=== PATIENT | male | born 1940 | race Caucasian/White ===

== ENCOUNTER 2018-05-05 16:49 | Outpatient (REF) | payer OTHER, SELFPAY ==
[2018-05-05 20:45] LABS: Uric Acid 6.3 mg/dL (3.5-7.2)
== END 2018-05-05 17:09 ==
LOC: NCHCN 16:49
PROVIDERS: PCP Specialist/Technologist Athletic Trainer; Visit Provider Specialist/Technologist Athletic Trainer
DX: M79.676 Pain in unspecified toe(s) (principal)
CPT/HCPCS: 84550

== ENCOUNTER 2018-05-13 10:06 | Emergency (ER) | payer OTHER, SELFPAY ==
[2018-05-13 10:12] VITALS: BP 158/56; PULSE 60; RESP 16; TEMP 36.4; O2SAT 99
--- NOTE | 2018-05-13 10:37 | DI.RAD_ITS ---
SYMPTOMS/DIAGNOSIS: RT KNEE PAIN RIGHT KNEE: No trauma history is provided. There are small calcifications on the tunnel projection. The joint spaces are well maintained. There is no evidence of a fracture or dislocation. SUMMARY: Minimal degenerative changes are demonstrated, nil else.
--- NOTE | 2018-05-13 10:40 | ED.GENADUL_ITS ---
Discharge Plan Disposition Patient Disposition: HOME Condition: Good Discharge Details Chief Complaint: Orthopedic Clinical Impression: Bursitis, prepatellar, right Primary Care Provider: Shaq Ware ED Provider: Justyna Banegas Home Meds and New Rx's Prescriptions: New tramadol 50 mg tablet 50 mg PO .qhs PRN (Reason: pain) Qty: 4 RF: 0 Continued atorvastatin 40 mg Tablet 40 mg PO DAILY RF: 0 bupropion HCl [Wellbutrin SR] 150 mg Tablet Sustained-Release 12 Hr 150 mg PO BID RF: 0 warfarin [Coumadin] 2.5 mg Tablet 2.5 mg PO .6DAYS A WEEK RF: 0 metoprolol tartrate 50 mg Tablet 25 mg PO BID RF: 0 ranitidine HCl 150 mg Capsule 150 mg PO BID RF: 0 Discharge Instructions Instructions: Knee Bursitis (ED) Additional Instructions: Encourage rest, ice, elevation. Tylenol as needed for discomfort. Brace to help when ambulating with discomfort. If you develop fever/chills, increased pain, redness, warmth or other new/worsening symptoms please seek care urgently once again. Otherwise, please follow-up with primary care next week for reevaluation and discuss your knee pain further Referrals: Shaq Ware [Primary Care Provider] - Medical Decision Making Patient is 77-year-old male, [facility] with chief complaint of right knee pain in the setting of elevated white count. Patient has history of mitral valve replacement, hyperlipidemia, GERD, hypertension. 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 Reports the pain began insidiously approximately 3-4 weeks ago. Patient works as a industrial plant custodian and states that he walks for 10-15 miles at night and is very physically strenuous job. However, he denies any known trauma. Was seen by his primary care was primarily concern for osteoarthritic source. He reports that x-rays were obtained which showed minimal osteoarthritis. Unable to see the images at this time. He reports that despite having a steroid injection, his pain has persisted. Indicates the prepatellar area is area of maximal discomfort. Reports that the pain can wax and wane. Reports a first awakening this morning the pain was a 9 out of 10 and is currently down to a 5. Patient ambulated in the department with no signs of antalgic gait. He denies any fevers or chills. Denies any chest pain, palpitations or shortness of breath Reviewed laboratory evaluation was completed yesterday. White count was notable to be elevated at 14. Patient is also endorsing recent change in urinary habits of the past 4-5 days. Reports he has had increased frequency of urination which is thought to be associated with his enlarged prostate. He denies any dysuria On exam, patient is noted to have some swelling over the prepatellar area, consistent with prepatellar bursitis. Did not see any indication of infection. There is no effusion, erythema or warmth. Exam is otherwise normal without any pain elicited on exam. We will repeat laboratory evaluation, obtain imaging and consult with orthopedics. At this point, I do not feel that aspiration is appropriate as this may increase his risk of infection which he feels I do not have suspicion for infection being present in the knee at this time. Also obtain a urinalysis as I am questioning that this may be the source of his leukocytosis given his recent onset of symptoms. Labs significant for WBC of 12.4, this is down trending from yesterday. No evidence of UTI. Labs otherwise without significant abnormality. Discussed findigns with the patient. Consulted with Dr. Hernandez as the PCP had been concerned about septic joint and were questioning the need for aspiration. At this point, on clinical exam, I do not see source to aspirate. He advised against aspiration, advised that if patient is ambulatory on the knee with full ROM and no effusion this does not coorelate clinically with infection. Contacted Ainsley Saldivar NP, regarding todays findings. She reports that she did not evaluate the knee yesterday, advised patient was there for his yearly check up. Was concerned with knee pain and leukocytosis that the two may be linked. ADvised he follow up with his non[facility] PCP. Patient I have reviewed findings. I encouraged rest, ice and elevation. Advised Tylenol as needed for discomfort. We will fit him in a hinged knee brace to help with discomfort with ambulation. Advise follow-up with his primary care in 1 week for reevaluation. We discussed new/worsening symptoms, in particular signs and symptoms of infection, and when to seek care urgently once again. All of his questions and concerns were addressed and he is in agreement this plan At the time of discharge, patient is requesting stronger pain medication. He has been on Tylenol 3 from his primary care which she reports is not sufficient in alleviating his discomfort. My concern, with change in the patient's pain medication to a narcotic, is his age and that he continues to drive. I advised that we could do a nightly dose of tramadol that he should not drive while on this medication. We discussed the risks associated with it, patient did sign a narcotic agreement. HPI General Mode of arrival: ambulatory . Date/Time Provider Initiated Documentation: 05/13/18 10:06 . Limitations to Documentation: no limitations . Information obtained by: patient . History of Present Illness 77 year old M presents to the emergency department with the chief complaint of right knee pain, described as severe, with intensity rated at 9. Quality is described as aching, and is localized to the right and lower extremity. Patient reports no radiation. Patient started experiencing this week(s) (3-4) and it has been intermittent. Immobilization improves symptom(s), Movement worsens symptoms . Patient notes denies chest pain, cough, diaphoresis, fever/chills, loss of appetite, nausea/vomiting, rash, shortness of breath and syncope. Lupillo miranda did receive the following treatments prior to arrival, other (steroid injection) Related Data Home Medications Medication Instructions Recorded Confirmed atorvastatin 40 mg PO DAILY 05/13/18 05/13/18 bupropion HCl [Wellbutrin SR] 150 mg PO BID 05/13/18 05/13/18 metoprolol tartrate 25 mg PO BID 05/13/18 05/13/18 ranitidine HCl 150 mg PO BID 05/13/18 05/13/18 tramadol 50 mg PO .qhs PRN #4 tab 05/13/18 warfarin [Coumadin] 2.5 mg PO .6DAYS A WEEK 05/13/18 05/13/18 Previous Rx's Medication Instructions Recorded tramadol 50 mg PO .qhs PRN #4 tab 05/13/18 Allergies Allergy/AdvReac Type Severity Reaction Status Date / Time cat dander Allergy Unverified 05/13/18 10:25 Review of Systems Constitutional Reports as per HPI, Denies chills, Denies fever(s), Denies headache(s), Denies poor appetite and Denies weakness ENT Denies headache(s) Cardiovascular Reports as per HPI, Denies chest pain, Denies chest pain at rest, Denies chest pain with activity, Denies diaphoresis, Denies pedal edema, Denies edema, Denies claudication, Denies lightheadedness, Denies radiating jaw, neck or arm pain, Denies palpitations, Denies dyspnea and Denies dyspnea on exertion Respiratory Reports as per HPI, Denies cough, Denies dyspnea and Denies dyspnea on exertion Gastrointestinal Reports as per HPI, Denies abdominal pain, Denies change in stool character, Denies nausea and Denies vomiting Genitourinary Reports urinary frequency and Reports urinary hesitancy Musculoskeletal Reports as per HPI, Reports abnormal gait (reports when pain is severe he has limp), Denies deformity, Denies joint swelling, Denies limited range of motion, Denies muscle cramps, Denies numbness and Denies tingling Integumentary/Breasts Reports as per HPI, Denies erythema, Denies rash and Denies wounds Neurologic Reports abnormal gait (reports when pain is severe he has limp), Denies headache(s), Denies numbness, Denies tingling and Denies weakness Endocrine Denies palpitations [facility] Social History Smoking/Tobacco Use Status: Never Exam Const General: cooperative, healthy appearing, comfortable, no acute distress, well developed and well groomed Nutritional Appearance: average body habitus and well nourished Orientation: alert and awake Resp Effort & Inspection: normal respiratory effort, able to speak in complete sentences and no respiratory distress Auscultation: clear to auscultation bilaterally, no rales, no rhonchi and no wheezes Cardio Rate: regular rate Rhythm: regular rhythm Heart Sounds: click Skin General skin exam: no rashes or lesions noted and no erythema Lesions: no lesions Rashes: no rashes Trauma: no lacerations or abrasions Neuro General: alert and awake Cognition: normal cognition Speech: speech normal Gait: normal gait Motor: muscle tone normal throughout Sensory Exam: no sensory deficits noted Extrem General: normal to inspection, full ROM, normal capillary refill, no joint enlargement, no pedal edema, no calf tenderness, normal gait and no calf tenderness bilaterally Right lower extremity: full ROM, normal capillary refill, no joint enlargement and knee Details: tenderness Location: of the pre-patellar area; not of the medial joint line and not of the lateral joint line, swelling (no effusion) Location: of the pre-patellar area, normal ROM, knee ligament exam normal Details: anterior drawer test normal, posterior drawer test normal, valgus stress test normal and varus stress test normal and Luis Daniel's Test Details: negative medially and laterally; inspection abnormal (prepatellar bursal swelling), no ecchymosis, no crepitus, no deformity and no unusual warmth; abnormal to inspection (patient has localized swelling to the prepatellar area), no cyanosis and no edema Psych Appearance: grossly normal and well kempt Mental Status: mental status grossly normal Speech and Movement: speech and movement normal
[2018-05-13 10:55] LABS: Abs Immature Grans 0.19 k/cumm (0.0-0.09); Absolute Basophil Count 0.02 k/cumm (0.0-0.2); Absolute Eosinophil Count 0.32 k/cumm (0.0-0.7); Absolute Lymphocyte Count 1.97 k/cumm (1.2-3.4); Absolute Monocyte Count 1.06 k/cumm (0.11-0.7); Absolute Neutrophil Count 8.89 k/cumm (1.2-6.7); Basophils % 0.2; Eosinophils % 2.6; HCT 43.3 % (40.0-50.0); HGB 14.4 g/dL (13.5-17.5); Immature Grans % 1.5; Lymphocytes % 15.8; Mean Corp. HGB Concentration 33.3 g/dL (32.0-36.0); Mean Corpuscular Hemoglobin 31.4 pg (27.0-33.0); Mean Corpuscular Volume 94.3 fL (80-95); Mean Platelet Volume 10.5 fL (8.0-11.0); Monocytes % 8.5; Neutrophils % 71.4; Platelet Count 296 x1000/uL (130-400); RBC 4.59 m/cumm (4.50-6.00); RBC Distribution Width 13.9 % (11.8-14.1); White Blood Cell Count 12.45 k/cumm (4.4-10.8)
[2018-05-13 11:35] LABS: Bilirubin Negative (Negative); Blood Small (Negative); Clarity Clear; Glucose Negative (Negative); Ketones Negative (Negative); Leukocyte Esterase Negative (Negative); Nitrite Negative (Negative); Urobilinogen 0.2 EU/dL (Up TO 0.2)
[2018-05-13 11:42] LABS: ALT 34 U/L (12-78); AST 24 U/L (15-37); Albumin 3.6 g/dL (3.4-5.0); Alkaline Phosphatase 68 U/L (46-116); Anion Gap 7.9 mmol/L (3-11); BUN 23 mg/dL (7-18); Bilirubin, Total 1.2 mg/dL (0.2-1.0); CO2 27.1 mmol/L (21.0-32.0); CREATININE 1.27 mg/dL (0.70-1.30); Chloride 102 mmol/L (98-107); Estimated GFR 55.14 (mL/min/1.73m2); Glucose 146 mg/dL (70-100); Potassium 4.6 mmol/L (3.5-5.1); Sodium 137 mmol/L (136-145); Total Protein 6.8 g/dL (6.4-8.2)
[2018-05-13 11:43] LABS: Bacteria Rare HPF (Negative); C & S Indicated? No; Casts 3-5 Hyaline LPF (Negative); Crystals Negative HPF (Negative); Epithelial Cells Few HPF (Negative); Mucus Moderate (Negative); WBC 0-2 HPF (0-5)
[2018-05-13 12:08] VITALS: BP 126/60; PULSE 56; RESP 16; TEMP 37.1; O2SAT 97
== END 2018-05-13 12:25 | disposition home or self-care (01) ==
PROVIDERS: Emergency Provider Physician Assistant; PCP Specialist/Technologist Athletic Trainer
DX: M70.41 Prepatellar bursitis, right knee (principal)
CPT/HCPCS: 36415; 80053; 99283; 73564; 81003; 81015; 85025; L1820

== ENCOUNTER 2018-05-16 01:27 | Emergency (ER) | payer OTHER, SELFPAY ==
[2018-05-16 01:33] VITALS: BP 131/89; PULSE 60; RESP 20; TEMP 36.8; O2SAT 99
--- NOTE | 2018-05-16 01:40 | W.ED.GENAD ---
Discharge Plan Disposition Patient Disposition: HOME Condition: Stable Discharge Details Chief Complaint: Orthopedic Clinical Impression: Osteoarthritis of right knee Primary Care Provider: Shaq Ware ED Provider: Provider,Temporary Home Meds and New Rx's Prescriptions: New lidocaine 4 % adhesive patch,medicated 1 patch TP BID Qty: 6 RF: 1 Continued atorvastatin 40 mg Tablet 40 mg PO DAILY RF: 0 bupropion HCl [Wellbutrin SR] 150 mg Tablet Sustained-Release 12 Hr 150 mg PO BID RF: 0 warfarin [Coumadin] 2.5 mg Tablet 2.5 mg PO .6DAYS A WEEK RF: 0 metoprolol tartrate 50 mg Tablet 25 mg PO BID RF: 0 ranitidine HCl 150 mg Capsule 150 mg PO BID RF: 0 tramadol 50 mg tablet 50 mg PO .qhs PRN (Reason: pain) Qty: 4 RF: 0 Discharge Instructions Instructions: Osteoarthritis (ED) Additional Instructions: Follow up with your primary care provider in 1-2 weeks You can call orthopedics and get an appointment to see if they can do a joint injection if you have fevers or the joint becomes red and swollen return to the emergency department Referrals: Easton Hernandez MD [ [facility] STAFF PHYSICIAN] - Medical Decision Making 77 yo male comes in with chronic right knee pain. Seen here on Friday after he was told he may have septic joint after he had a wbc of 14 with his pcp on Friday at routine visit at time his knee wasn't examined. Friday had exam that was inconsistent with septic joint and xray showing djd. He works nights at [employer] and is on his feet, was having pain so left and came here. Denies trauma. On exam there is no swelling of the knee, no redness or warmth and has full rom. Has pain of the anterior knee. No findings to suggest septic joint. He has no deformity or trauma and had xrays that were done just this week so do not feel additional set would be beneficial. I suspect his pain is from osteoarthritis and exacerbated by his work. I advised he should try and avoid standing for long times. I will refer him to ortho to see if there are any injections that they could do for him .Return precautions given Differential Diagnosis dhd, osteoarthritis HPI General Mode of arrival: ambulatory. Date/Time Provider Initiated Documentation: 05/16/18 01:34. Limitations to Documentation: no limitations. Information obtained by: patient. History of Present Illness 77 year old M presents to the emergency department with the chief complaint of right knee pain, described as moderate, and is localized to the right and lower extremity. Patient reports no radiation. Patient started experiencing this day(s) No exacerbating factors reported . Patient did receive the following treatments prior to arrival, none Related Data Home Medications Medication Instructions Recorded Confirmed atorvastatin 40 mg PO DAILY 05/13/18 05/16/18 bupropion HCl [Wellbutrin SR] 150 mg PO BID 05/13/18 05/16/18 metoprolol tartrate 25 mg PO BID 05/13/18 05/16/18 ranitidine HCl 150 mg PO BID 05/13/18 05/16/18 tramadol 50 mg PO .qhs PRN #4 tab 05/13/18 05/16/18 warfarin [Coumadin] 2.5 mg PO .6DAYS A WEEK 05/13/18 05/16/18 lidocaine 1 patch TP BID #6 each 05/16/18 Previous Rx's Medication Instructions Recorded tramadol 50 mg PO .qhs PRN #4 tab 05/13/18 lidocaine 1 patch TP BID #6 each 05/16/18 Allergies Allergy/AdvReac Type Severity Reaction Status Date / Time cat dander Allergy Unverified 05/16/18 01:36 General Stated Complaint: Orthopedic MIKE: 3 Review of Systems Review of Systems All systems reviewed & are unremarkable except as noted in HPI and below Constitutional Denies chills, Denies fever(s) and Denies weakness Eyes Denies loss of vision ENT Denies change in voice Cardiovascular Denies chest pain and Denies dyspnea Respiratory Denies dyspnea Gastrointestinal Denies abdominal pain, Denies nausea and Denies vomiting Musculoskeletal Denies joint swelling Integumentary/Breasts Denies rash Neurologic Denies loss of vision and Denies weakness Psychiatric Denies depression [facility] Social History Smoking/Tobacco Use Status: Never Exam Const General: no acute distress Orientation: alert HENMT Head: normal to inspection Ears: external ears normal General nose exam: external nose normal Mouth: moist mucous membranes Eyes General: appearance normal, both eyes and all related structures Neck Neck: normal visual inspection Resp Effort & Inspection: normal respiratory effort and able to speak in complete sentences Cardio Rate: regular rate Skin General skin exam: no rashes or lesions noted Neuro General: alert and oriented x3 Extrem General: normal to inspection Psych Mental Status: mental status grossly normal Course Vital Signs Temperature 36.8 C 05/16/18 01:33 Pulse 60 05/16/18 01:33 Respiratory Rate 20 05/16/18 01:33 Blood Pressure 131/89 05/16/18 01:33 Pulse Oximetry 99 05/16/18 01:33 Temperature 36.8 C 05/16/18 01:33 Temperature Source Temporal Artery Scan 05/16/18 01:33 Pulse 60 05/16/18 01:33 Respiratory Rate 20 05/16/18 01:33 Respiratory Effort Non-Labored 05/16/18 01:33 Blood Pressure 131/89 05/16/18 01:33 Blood Pressure Position Sitting 05/16/18 01:33 Pulse Oximetry 99 05/16/18 01:33 Oxygen Delivery Method Room Air 05/16/18 01:33 Oxygen Flow Rate 0 05/16/18 01:33 Pain Level 10 05/16/18 01:37
[2018-05-16] MEDS: Lidocaine 5% Patch 1 PATCH (01:45)
[2018-05-16 01:47] VITALS: BP 131/89; PULSE 60; RESP 20; TEMP 36.8; O2SAT 99
== END 2018-05-16 02:00 | disposition home or self-care (01) ==
PROVIDERS: Emergency Provider Emergency Medicine; PCP Specialist/Technologist Athletic Trainer
DX: M17.11 Unilateral primary osteoarthritis, right knee (principal)
CPT/HCPCS: 99282

== ENCOUNTER 2018-06-03 21:01 | Outpatient (REF) | payer OTHER, SELFPAY ==
[2018-06-03 21:43] LABS: Cholesterol 133 mg/dL (50-200); HDL Cholesterol 38 mg/dL (40-60); LDL CHOLESTEROL 72 mg/dL (<100); Triglyceride 100 mg/dL (30-150)
== END 2018-06-03 21:21 ==
LOC: NCHCN 21:01
PROVIDERS: PCP Specialist/Technologist Athletic Trainer; Visit Provider Specialist/Technologist Athletic Trainer
DX: Z12.5 Encounter for screening for malignant neoplasm of prostate (principal); N40.0 Benign prostatic hyperplasia without lower urinary tract symptoms; E78.5 Hyperlipidemia, unspecified; I10 Essential (primary) hypertension
CPT/HCPCS: 80061; 83721; 84153

== ENCOUNTER 2018-08-12 01:18 | Outpatient (CLI) | payer OTHER, SELFPAY ==
--- NOTE | 2018-08-12 08:58 | DI.MRI_ITS ---
SYMPTOM/DIAGNOSIS: RT KNEE PAIN, M25.561 RIGHT KNEE MRI: Routine noncontrast examination was performed. The anterior cruciate, posterior cruciate, medial and lateral collateral ligaments, extensor mechanism, medial and lateral retinaculum and popliteus tendon are intact. The lateral meniscus is unremarkable. There is a tear involving the body and posterior horn of the medial meniscus. There is a small fluid collection adjacent to the medial meniscus consistent with a perimeniscal cyst. The articular cartilage is intact. Marrow signal is within normal limits. No evidence of an occult fracture or avascular necrosis is present. There is a normal amount of fluid seen in the joint space. There is mild edema seen in the soft tissues around the knee. No focal fluid collection is identified. The muscles show normal signal and size. No significant muscular fatty atrophy is present. IMPRESSION: Tear of the body and posterior horn of the medial meniscus with an associated small perimeniscal cyst.
--- NOTE | 2018-08-12 09:31 | DI.RAD_ITS ---
SYMPTOM/DIAGNOSIS: RT FOOT PAIN, M79.671, RT KNEE PAIN, M25.561 RIGHT FOOT: Three views. No priors. At the first metatarsal phalangeal joint, there is marked joint space narrowing. There is subchondral sclerosis and prominent osteophytes present particularly on the dorsal surface. Mild hypertrophic changes are seen at the talonavicular joint. The joint spaces otherwise appear well maintained. The bones are intact and normally mineralized. There is a small spur at the planar surface of the calcaneus. There is a small enthesophyte at the posterior superior calcaneus. Extensive vascular calcifications are seen in the soft tissues. IMPRESSION: Marked osteoarthritic changes of the first metatarsal phalangeal joint. RIGHT KNEE: Three views. Comparison is made with 05/13/18. No acute or healing fracture or dislocation is identified. The articular surfaces appear well maintained. The bones are normally mineralized. Vascular calcifications are seen in the soft tissues. IMPRESSION: No acute abnormality.
== END 2018-08-12 01:38 ==
PROVIDERS: PCP Specialist/Technologist Athletic Trainer; Visit Provider Nurse Practitioner Primary Care
DX: M79.671 Pain in right foot (principal); M19.071 Primary osteoarthritis, right ankle and foot; M25.561 Pain in right knee; M77.31 Calcaneal spur, right foot; S83.241A Other tear of medial meniscus, current injury, right knee, initial encounter
CPT/HCPCS: 73562; 73721; 73630

== ENCOUNTER 2019-03-04 13:50 | Outpatient (REF) | payer OTHER, SELFPAY ==
[2019-03-04 19:09] LABS: HCT 42.1 % (40.0-50.0); HGB 13.9 g/dL (13.5-17.5); Mean Corpuscular Hemoglobin 30.6 pg (27.0-33.0); Mean Corpuscular Volume 92.7 fL (80-95); Mean Platelet Volume 11.1 fL (8.0-11.0); Platelet Count 245 x1000/uL (130-400); RBC 4.54 m/cumm (4.50-6.00); White Blood Cell Count 6.65 k/cumm (4.4-10.8)
[2019-03-04 19:54] LABS: ALT 36 U/L (16-63); AST 33 U/L (15-37); Albumin 3.6 g/dL (3.4-5.0); Alkaline Phosphatase 81 U/L (46-116); Anion Gap 9.4 mmol/L (3-11); BUN 29 mg/dL (7-18); Bilirubin, Total 0.7 mg/dL (0.2-1.0); CO2 26.6 mmol/L (21.0-32.0); CREATININE 1.91 mg/dL (0.70-1.30); Calcium 8.5 mg/dL (8.5-10.1); Chloride 106 mmol/L (98-107); Estimated GFR 34.34 (mL/min/1.73m2); Glucose 107 mg/dL (70-100); Potassium 4.9 mmol/L (3.5-5.1); Sodium 142 mmol/L (136-145); Total Protein 6.3 g/dL (6.4-8.2)
== END 2019-03-04 14:10 ==
LOC: NCHCN 13:50
PROVIDERS: PCP Specialist/Technologist Athletic Trainer; Visit Provider Specialist/Technologist Athletic Trainer
DX: I10 Essential (primary) hypertension (principal); K21.9 Gastro-esophageal reflux disease without esophagitis; Z79.01 Long term (current) use of anticoagulants; Z79.899 Other long term (current) drug therapy
CPT/HCPCS: 80053; 85027

== ENCOUNTER 2019-03-09 15:37 | Outpatient (REF) | payer OTHER, SELFPAY ==
[2019-03-09 22:17] LABS: Anion Gap 10.1 mmol/L (3-11); BUN 29 mg/dL (7-18); CO2 23.9 mmol/L (21.0-32.0); CREATININE 1.36 mg/dL (0.70-1.30); Calcium 8.6 mg/dL (8.5-10.1); Chloride 107 mmol/L (98-107); Estimated GFR 50.81 (mL/min/1.73m2); Glucose 83 mg/dL (70-100); Potassium 4.7 mmol/L (3.5-5.1); Sodium 141 mmol/L (136-145)
== END 2019-03-09 15:57 ==
LOC: NCHCN 15:37
PROVIDERS: PCP Specialist/Technologist Athletic Trainer; Visit Provider Specialist/Technologist Athletic Trainer
DX: N40.0 Benign prostatic hyperplasia without lower urinary tract symptoms (principal)
CPT/HCPCS: 80048

== ENCOUNTER → 2019-07-16 11:29 | Outpatient (REF) | payer OTHER, SELFPAY ==
[2019-07-16 19:04] LABS: INR 2.2 (0.9-1.1); Prothrombin Time 21.9 sec (9.3-11.0)
[2019-07-16 19:29] LABS: Albumin 3.7 g/dL (3.4-5.0); TSH (W/Ref FT4) 1.32 uIU/mL (0.36-3.74); Vitamin B12 691 pg/mL (193-986)
== END ==
LOC: NCHCN 11:29
PROVIDERS: PCP Specialist/Technologist Athletic Trainer; Visit Provider Nurse Practitioner Family
DX: Z79.01 Long term (current) use of anticoagulants (principal); R25.1 Tremor, unspecified
CPT/HCPCS: 82040; 82607; 84443; 85610

== ENCOUNTER 2019-07-20 01:59 | Outpatient (CLI) | payer OTHER, SELFPAY ==
--- NOTE | 2019-07-20 | DI.US_ITS ---
EXAM: US SCROTUM CLINICAL HISTORY: RT SCROTAL MASS, PAINLESS, COMES AND GOES,N50.9 TECHNIQUE: Ultrasound performed using standard protocol. COMPARISON: No exams were available for comparison FINDINGS: Scrotal ultrasound was performed according the usual protocol. Patient reportedly has history of an intermittent scrotal mass. Evaluation of the scrotal contents shows bowel herniated into the scrotal sac on the right superior to the testis, peristalsis was visualized. Testes appear normal bilaterally with homogeneous echotexture and unremarkable vascular flow. No lucy icocele seen. Epididymi are unremarkable except for a couple of apparent small right spermatoceles, largest about 5 millimeters in diameter. Minimal hydroceles present bilaterally. 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 No other signif icant findings. DATA REPOSITORY:
== END 2019-07-20 02:19 ==
PROVIDERS: PCP Specialist/Technologist Athletic Trainer; Visit Provider Nurse Practitioner Family
DX: N50.89 Other specified disorders of the male genital organs (principal); N43.42 Spermatocele of epididymis, multiple; K40.90 Unilateral inguinal hernia, without obstruction or gangrene, not specified as recurrent
CPT/HCPCS: 76870

== ENCOUNTER → 2019-08-13 10:37 | Outpatient (BNVA) | payer OTHER, SELFPAY | PROVIDERS: PCP Specialist/Technologist Athletic Trainer; Referring Provider Specialist/Technologist Athletic Trainer; Visit Provider Surgery | DX: K40.90 Unilateral inguinal hernia, without obstruction or gangrene, not specified as recurrent (principal); I38 Endocarditis, valve unspecified; I43 Cardiomyopathy in diseases classified elsewhere; Z95.2 Presence of prosthetic heart valve; I10 Essential (primary) hypertension; R73.9 Hyperglycemia, unspecified; E78.5 Hyperlipidemia, unspecified | CPT/HCPCS: 99203; 99214 ==

== ENCOUNTER 2019-09-14 00:39 | Outpatient (CLI) | payer OTHER, SELFPAY ==
--- NOTE | 2019-09-14 07:45 | DI.US_ITS ---
APPROVED REPORT EXAM: Comprehensive 2D, Doppler, and color-flow Echocardiogram Patient Location: Out-Patient Professor Of Latin American Studies: Mel Zhang RDCS (AE) Indications: Endocarditis/Cardiomyopahty, MV Replacement, HTN Other Information Study Quality: Good Conclusion Left Ventricle : The left ventricle is normal size. The left ventricular systolic function is normal. The left ventricular ejection fraction is within the normal range. Borderline concentric left ventri cular hypertrophy. There is normal LV segmental wall motion. There is grade 2 diastolic dysfunction. LVEF is 50%. Right Ventricle : The right ventricle is normal size. The right ventricular systolic function is norm al. Estimated RVSP is 30 mmHg. Atria : Left atrium is borderline dilated. The right atrium size is normal. Aortic Valve : The aortic valve is normal in structure. Aortic valve is trileaflet. No aortic regurgi tation is present. There is no aortic valvular stenosis. Mitral Valve : Mechanical mitral valve which appears be functioning normally and well-seated. No ernestina dence of mitral valve stenosis. There is no mitral valve regurgitation noted. Tricuspid Valve : The tricuspid valve is normal in structure. There is no tricuspid valve stenosis. M ild tricuspid regurgitation. Great Vessels : The IVC collapses <50% with inspiration. Compared to echocardiogram from [facility] on 03/13/2017: There is no significant change. Wall motion Left Ventricle The left ventricle is normal size. The left ventricular systolic function is normal. The left ventric ular ejection fraction is within the normal range. Borderline concentric left ventricular hypertrophy . There is normal LV segmental wall motion. There is grade 2 diastolic dysfunction. There is no ventr icular septal defect visualized. LVEF is 50%. Right Ventricle The right ventricle is normal size. The right ventricular systolic function is normal. Estimated RVSP is 30 mmHg. Atria Left atrium is borderline dilated. The right atrium size is normal. The interatrial septum is intact with no evidence for an atrial septal defect. Aortic Valve The aortic valve is normal in structure. Aortic valve is trileaflet. There is no aortic valvular sten osis. No aortic regurgitation is present. There is no aortic valvular vegetation. Mitral Valve Mechanical mitral valve which appears be functioning normally and well-seated. No evidence of mitral valve stenosis. There is no mitral valve regurgitation noted. Tricuspid Valve The tricuspid valve is normal in structure. There is no tricuspid valve stenosis. Mild tricuspid regu rgitation. There is no tricuspid valve vegetations. Pulmonic Valve The pulmonary valve is normal in structure. There is no pulmonic valvular stenosis. Mild pulmonic reg urgitation. There is no pulmonic valve vegetations. Great Vessels The aortic root is normal in size. The ascending aorta is normal in size. Aortic arch is normal in ca liber. The IVC collapses <50% with inspiration. Pericardium There is no pericardial effusion. There is no pleural effusion. 2D Dimensions IVSD d PLAX 1.09 cm M: 0.6-1.2 LV Vol A2C d MOD 115.3 mL LVPW d PLAX 1.10 cm M: 0.6 - 1.2 LV Vol A4C d MOD 118.6 mL LVID d PLAX 5.26 cm M: 4.2 - 5.8 LA vol/ BSA A2C s A-L 17.3 mL/m2 LVDs 3.95 cm M: 2.5 - 4.0 LA vol/ BSA A4C s A-L 66.4 mL/m2 Ao Root d 3.06 cm M: 3.1 - 3.7 LA Vol/ BSA Biplane s A-L 36.8 mL/m2 Ao Asc Diam d 3.53 cm M: 2.6 - 3.4 LA Area A4C s MOD 30.33 cm2 LV EF Teichholz 48.8 % LA Area A2C s MOD 14.29 cm2 LVEF (Noriega's) 52.14 % M: 52 - 72 LV EF A4C MOD 51.2 % LV Volume 90.28 mL M: 62 - 150 LV EF A2C MOD 50.1 % LV Volume Index 44.25 mL/m2 M: 34 - 74 LV EF Biplane MOD 52.1 % LV Vol Biplane MOD 121.2 mL FS 24.80 % M-Mode TAPSE 2.30 cm (M/F) <1.7 LV Diastology MV E' medial 0.058 (>0.07 m/s) E/A Ratio 0.7 LV E/e MED 19.15 (<14) MV E Vmax 1.11 (0.4-1.3 m/s) MV E' lateral 0.065 (>0.1 m/s) MV A Vmax 1.50 (0.4-1.3 m/s) LV E/e LAT 17.00 (<14) MV E/A Ratio 0.74 MV E/E' medial 19.17 MV E/E' lateral 17.02 Aortic Valve LVOT Area 2.64 cm2 AoV Area Vmax 1.69 cm2 LVOT Vmax 1.03 m/s AoV Area/ BSA (Vmax) 0.83 cm2/m2 LVOT Mean Chance. 0.69 m/s FRANK Mean Chance. 1.56 cm2 LVOT Peak Grad 4.3 mmHg FRANK Mean Chance. Index 0.76 cm2/m2 LVOT Mean Grad 2.2 mmHg LVOT VTI 0.200 m LVOT Diam s 1.80 cm (M/F) 1.5-2.5 AoV Vmax 1.61 (0.5-1.3 m/s) Velocity Ratio 0.63 AoV Mean Chance. 1.17 m/s AoV Peak Grad 10.4 mmHg LVOT SV 52.86 mL AoV Mean Grad 5.9 (<5 mmHg) AoV VTI 0.304 (0.18-0.25 m) AoV Area VTI 1.74 (2.5-4.5 cm2) AoV Area/ BSA (VTI) 0.85 cm/m2 Mitral Valve MV DT 244 (160-240 msec) MR Vmax 2.03 m/s MV PHT 71 msec MR VTI 0.586 m MV Area PHT 3.10 cm2 MR Peak Grad 16.6 mmHg MV VTI 0.314 m MR Mean Grad 14.2 mmHg MV Area VTI 1.68 (4.0-6.0 cm2) Pulmonary Valve PV Vmax 1.28 (0.5-1.5 m/s) RVOT Peak Gr. 1.49 mmHg PV Peak Grad 6.5 mmHg RVOT Mean Gr. 0.80 mmHg PV Mean Grad 2.7 mmHg RVOT VTI 0.124 m PV VTI 0.216 m RVOT Vmax 0.61 m/s Tricuspid Valve TR Peak Grad 25.5 mmHg TR Vmax 2.53 m/s RA Pressure 5.00 mmHg RVSP (TR) 30.5 mmHg
== END 2019-09-14 00:59 ==
PROVIDERS: PCP Nurse Practitioner Family; Visit Provider Surgery
DX: I38 Endocarditis, valve unspecified (principal); I43 Cardiomyopathy in diseases classified elsewhere; I50.30 Unspecified diastolic (congestive) heart failure; I10 Essential (primary) hypertension; E78.5 Hyperlipidemia, unspecified; Z95.2 Presence of prosthetic heart valve
CPT/HCPCS: 93306

== ENCOUNTER 2019-09-21 08:25 | Outpatient (CLI) | payer OTHER, SELFPAY ==
[2019-09-23 11:14] LABS: COVID-19 RT-PCR UVMMC Result Negative
== END 2019-09-21 08:45 ==
PROVIDERS: PCP Nurse Practitioner Family; Visit Provider Surgery
DX: Z11.59 Encounter for screening for other viral diseases (principal)
CPT/HCPCS: U0003

== ENCOUNTER 2019-09-27 09:00 | Observation (INO) | payer OTHER, SELFPAY ==
[2019-09-27] VITALS (11 sets, daily range): BP systolic 106–138; BP diastolic 44–78; PULSE 58–69; RESP 14–19; TEMP 35.2–36.8; O2SAT 95–98
[2019-09-27 06:52] LABS: Prothrombin Time 9.6 sec (9.3-11.0)
[2019-09-27] MEDS: Lactated Ringers 1,000 ML 80 ML IV (07:00)
--- NOTE | 2019-09-27 07:28 | W.PM.HP.N ---
Date of service: 09/27/19 Time of Service: 07:28 Assessment and Plan Assessment and plan (1) Hernia: Status: Chronic Assessment and plan: Risks of the surgery include but are not limited to: Bleeding/infection/pneumonia/damage to blood vessels or bladder or bowels/blood clots or PE/chronic pain/urinary retention/chronic numbness/reoccurrence/reaction to mesh requiring removal/damage to testicle or sterility/complications of anesthesia. The pt will have a pre-Op PE with his/her PCP to ensure fitness for anesthesia. The procedure will be done with abx and under sterile conditions. The pt requires a ride home from surgery and someone to stay with the pt for 24 hrs after anesthesia. No lifting over 5 pounds for 2 weeks after surgery. pt needs to go on blood thinners immediately. B/c this is such a lg surgery- will plan on postOp admission to monitor for bleeding. pt marked all questions answered. Stable for the procedure (2) Reducible right inguinal hernia: Status: Acute (3) Blood glucose elevated: Status: Acute (4) Hyperlipidemia: Status: Acute (5) Hypertension: Status: Chronic (6) H/O mitral valve replacement with mechanical valve: Status: Acute History of Present Illness Consults Consult date: 09/27/19 Narrative: [facility] PATIENT NAME: CHRISTIANNE BULLARD AUNIT #: [id number] ADMITTING PROVIDER: Kenia Decker #: [id number] PRIMARY CARE PROVIDER:JULISSA VALENTINO DATE OF ADMIT: 08/13/19 : 1940 Assessment & Plan (1) Hernia: (2) Reducible right inguinal hernia: (3) Cardiomyopathy in disease classified elsewhere: (4) H/O mitral valve replacement with mechanical valve: (5) Hypertension: (6) Hyperlipidemia: (7) Blood glucose elevated: I discussed the nature of inguinal hernias with the pt ( and their spouse). I discussed the surgery in detail and the complications related to the surgery and the anesthesia. Pt. understands this, all questions were answered to the patient satisfaction and they signed the consent for surgery. Patient was given an educational booklet. -pt will have preOp echo _he will need to bridge w/ lovenox. We will arrange this as outpt. -The office will contact him after [facility] has cleared and schedule for surgery Risks of the surgery include but are not limited to: Bleeding/infection/pneumonia/damage to blood vessels or bladder or bowels/blood clots or PE/chronic pain/urinary retention/chronic numbness/reoccurrence/reaction to mesh requiring removal/damage to testicle or sterility/complications of anesthesia. The procedure will be done with abx and under sterile conditions. B/c we will need to re-start him on anti-coag immediately, we will prob keep him in the hospital over night. No lifting over 5 pounds for 2 weeks after surgery. -if he develops s/s of incarceration- seek medical care. HPI Hernia pt has a large R scrotal mass/R inguinal hernia. It has been there for some time. He doesnt have any pain Did not start at work. It is reducible. Pt denies any difficulty urinating/defecating or chronic cough. Pt. HAS NOT previous hx of groin surgery. He has not had a recent CE. He has had no changes in his bowels, no pain or difficulty w/ defecation. He denies straining and says he is regular every morning. No blood. Non smoker. It is completely asymp. It does go away when he lies down. It does not interfere w/ BM or urinating. He has no pain what so ever. It is quite lg, and obvious bowel. There is no hernia on the left side. He has had a mitral valve replaced w/ a mechanical valve secondary to endocarditis- they think he got it from dental work. He had a hx of MVP. He has not had a recent echo. He is on coumadin. He does need to get an echo preOp and would need to do bridging w/ lovenox. right inguinal No >1 year Pt is here today for surgery. reviewed the procedure and expectations for recovery and risks of surgery. inr today is 1.0 echo- in [facility] and shows exceptible function for surgery He has been having more pain as of late. 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 (Acute) GERD (gastroesophageal reflux disease) (Chronic) Hyperlipidemia (Acute) Hypertension (Chronic) Knee pain (Acute) Normal colonoscopy (Acute) Preop testing (Acute) Reducible right inguinal hernia (Acute) Tremor (Acute) Unresolved grief (Acute) Surgical History H/O mitral valve replacement with mechanical valve (Acute) History of elbow surgery (Acute) Left History of esophagogastroduodenoscopy (EGD) (Chronic) History of hemorrhoidectomy (Chronic) S/P MVR (mitral valve repair) (Acute) Social History Smoking/Tobacco Use Status: Never Drug use: Never Do you feel safe in your relationship?: Yes Meds Home Medications and Allergies Home Medications Medication Instructions Recorded Confirmed Type atorvastatin 40 mg PO HS 05/13/18 09/27/19 History bupropion HCl [Wellbutrin SR] 150 mg PO BID 05/13/18 09/27/19 History tramadol 50 mg PO .qhs PRN #4 tab 05/13/18 09/27/19 Rx warfarin [Coumadin] 2.5 mg PO .6DAYS A WEEK 05/13/18 09/27/19 History ascorbate calcium (vitamin C) 500 500 mg PO DAILY 08/09/19 09/27/19 History mg tablet aspirin 81 mg tablet,delayed 81 mg PO DAILY 08/09/19 09/27/19 History release cholecalciferol (vitamin D3) 100 4,000 unit PO DAILY 08/09/19 09/27/19 History mcg (4,000 unit) capsule famotidine 20 mg tablet 20 mg PO HS 08/09/19 09/27/19 History ginkgo biloba 40 mg tablet 40 mg PO TID 08/09/19 09/27/19 History loratadine 10 mg tablet 10 mg PO DAILY 08/09/19 09/27/19 History omega-3 fatty acids 1,000 mg 1,000 mg PO DAILY 08/09/19 09/27/19 History capsule sildenafil (pulm.hypertension) 20 20 mg PO PRN tab 08/09/19 09/27/19 History mg tablet terazosin 1 mg capsule 1 mg PO DAILY 08/09/19 09/27/19 History vitamin B complex 1 tab PO DAILY 08/09/19 09/27/19 History vitamin E 200 unit capsule 200 unit PO DAILY 08/09/19 09/27/19 History echinacea 400 mg capsule 400 mg PO TID 08/13/19 09/27/19 History saw palmetto 160 mg capsule 160 mg PO BID 08/13/19 09/27/19 History magnesium oxide 400 mg PO DAILY 09/23/19 09/27/19 History metoprolol tartrate 12.5 mg PO BID 09/23/19 09/27/19 History enoxaparin 100 mg SUBCUT BID 09/27/19 09/27/19 History Allergies Allergy/AdvReac Type Severity Reaction Status Date / Time No Known Allergies Allergy Unverified 09/27/19 06:30 Exam HENMT Head: normal to inspection Ears: hearing grossly normal bilaterally Teeth and gingiva: fair dentition Neck Neck: no JVD Chest Chest: normal inspection of the chest Other: incision well healed Resp Effort & Inspection: normal respiratory effort and able to speak in complete sentences Auscultation: clear to auscultation bilaterally Cardio Rate: regular rate Rhythm: regular rhythm Heart Sounds: click (mitral valve replacement ) GI Palpation: soft and nontender Other: lg right inguinal hernia Skin Other: mild chronic sun damage and rhytids Neuro General: patient alert, patient awake, patient oriented x3, oriented, moves all extremities, no focal motor deficits and CN's II-XI intact bilaterally Cranial Nerves: EOM intact bilaterally Cognition: normal cognition Speech: speech normal Extrem General: full ROM and no clubbing, cyanosis or edema Other: changes from mild OA in old joints Results Labs Labs: Laboratory Results - last 24 hr 09/27/19 06:37 PT 9.6 INR 1.0 Last Vital Signs Temp 36.4 C L 09/27/19 06:45 Pulse 69 09/27/19 06:45 Resp 18 09/27/19 06:45 BP 119/69 09/27/19 06:45 Pulse Ox 95 09/27/19 06:45 COVID-19 Screening Traveled to [place] from one of the affected countries or regions?: NO Medical treatment received for symptoms/illness related to travel?: pt had a neg covid test last week. he has self isolated since his test
[2019-09-27] MEDS: ceFAZolin 2 GM/50 ML BAG IVPB (07:47)
[2019-09-27] MEDS: Bupivacaine 0.25% Pres-Free 30 ML VIAL (07:58)
--- NOTE | 2019-09-27 10:26 | ROE_ITS ---
Date of service: 09/27/19 Time of Service: 10:26 Operative Note Operative Note DATE OF PROCEDURE: 09/27/19 PRE-OP DIAGNOSIS: right inguinal hernia POST-OP DIAGNOSIS: other (and hydrocele) PROCEDURE: open right inguinal hernia repair w/ mesh and right hydrocele repair SURGEON: Kenia Ceja ASSISTING SURGEON: Tomasa Nichole ANESTHESIA: GETA, regional and local ESTIMATED BLOOD LOSS: 10 PATHOLOGY: none sent Patient was transported to: PACU Patient's condition: stable Implants: XL soft mesh plug Procedure Description: INDICATIONS: regarding symptomatic right inguinal hernia that has failed outpatient conservative medical management and he is here today for repair. Informed consent was obtained, explaining risks and benefits of the procedure including but not limited to bleeding, infection, pneumonia, blood clots, chronic pain, chronic numbness, damage to testicle resulting in removal, recurrence, reaction to Mesh necessitating removal, and other unforetold complications and complications of anesthesia. The patient is marked in preop. DESCRIPTION OF PROCEDURE: was brought to the operative room suite. Anesthesia was administered per the Department of Anesthesia. Anesthesia also did a preprocedural tap block. The patient was prepped and draped in the usual sterile fashion using ChloraPrep scrub solution. Pause for the cause was done. He did receive preop IV antibiotics, 30 mL of 1% buffered lidocaine was used for local anesthetization. A #12 blade was used to make an incision over the external ring. Electrocautery used to provide hemostasis and dissect down to the fascia. The fascia was pretty much obliterated and there was nothing to open. The cord is elevated. The nerve was not identified. There is also a very large hydrocele. This is attended to first. Once we got to the hydrocele sac itself, we then opened and delivered the testis, drained clear fluid. There was moderate amount of scarring on the testis itself from the tunica vaginalis. It was then wrapped around the back and sutured in place with a running suture of 4-0 chromic in a Lord maneuver. Once this was done, a drain was placed in the base of the scrotum and then the testis was placed back into the scrotum in the proper orientation.This testis also was normal but had moderate amount of scarring on the tunic vaginalis from this. A similar drain was placed. The testes were then placed back into the scrotum in a proper orientation, and the local wound instillation and wound block was then placed using 30 mL of 0.5% Marcaine without epinephrine. A [place] drain was placed around the cord to assist in mobilization. The cord was explored. There was a very larger hernia sac on the cord. The transversalis in this area is pretty much obliterated. The sac is elevated and scored and inverted. A X large mesh plug was Nto the defect and oversewn into transversalis. The patch was then placed on the floor and sewn in using 2-0 Vicryl sewn into the pubic tubercle and the shelving portions of the inguinal ligament. There was really no external oblique to really reapproximate. Some is identified and dissected off and brought around the very superior portion of the cord and oversewn again with 2-0 Vicryl. The wound was copiously irrigated. There was no bleeding noted. The drain was placed. All structures are returned to normal anatomical position. Deep tissue was approximated with 3-0 Vicryl and skin was approximated with 4-0 Monocryl in a running subcuticular fashion. Skin glue was aspplies and sterile dressings are applied. The patient tolerated the procedure without complications to recovery in stable condition. KENIA CEJA, DO
--- NOTE | 2019-09-27 10:29 | W.PM.DS.N ---
Documented by User: Kenia Decker DO 09/27/19 10:31 Date of service: 09/27/19 Time of Service: 10:29 DS: Diagnosis Discharge Diagnosis (1) Hernia: Status: Deleted (2) Reducible right inguinal hernia: Status: Resolved (3) Blood glucose elevated: Status: Acute (4) Hyperlipidemia: Status: Acute (5) Hypertension: Status: Chronic (6) H/O mitral valve replacement with mechanical valve: Status: Acute Discharge Plan Disposition Patient Disposition: HOME Condition: Good Discharge Details Reason For Visit: RIH/MECHANICAL MITRL VALVE/ R hydrocele Admit Date/Time: 09/27/19 09:00 Admit Provider: Kenia Decker Attending Provider: Kenia Decker Primary Care Provider: Erica Mckenzie [facility] Hospital Course: Mr. Go is a pleasant 79 year old male who underwent Right Inguinal hernia repair and hydrocelectomy with Dr. Decker on 09/27/19. He was admitted overnight for observation due to is anticoagulation for a Mechanical Mitral valve. Patient has done well overnight. He complains of pain with ambulation but that is controlled with Ultram. He has tolerated a regular diet. His labs are stable and he was restarted on Coumadin this am. He is discharged home on Tramadol 50 mg every 6 hours as needed, Tylenol 650 mg every 6 hours as needed. Recommend ice to scrotum and Right inguinal area as needed for swelling and comfort. He has support garment on. Home Meds and New Rx's Prescriptions: New acetaminophen [Tylenol] 325 mg Tablet 650 mg PO Q6H Qty: 30 RF: 0 tramadol 50 mg Tablet 50 mg PO Q4H PRN PRN (Reason: pain) Qty: 20 RF: 0 docusate sodium [Colace] 100 mg Capsule 100 mg PO TID Qty: 60 RF: 0 Continued famotidine [Pepcid] 20 mg tablet 20 mg PO HS RF: 0 terazosin 1 mg capsule 1 mg PO DAILY RF: 0 sildenafil (pulm.hypertension) 20 mg tablet 20 mg PO PRN RF: 0 loratadine [Allergy Relief (loratadine)] 10 mg tablet 10 mg PO DAILY RF: 0 vitamin B complex [B Complex-Vitamin B12] Tablet 1 tab PO DAILY RF: 0 ascorbate calcium (vitamin C) 500 mg tablet 500 mg PO DAILY RF: 0 cholecalciferol (vitamin D3) 4,000 unit capsule 4,000 unit PO DAILY RF: 0 vitamin E 200 unit capsule 200 unit PO DAILY RF: 0 omega-3 fatty acids [Fish Oil Concentrate] 1,000 mg capsule 1,000 mg PO DAILY RF: 0 ginkgo biloba 40 mg tablet 40 mg PO TID RF: 0 aspirin [Adult Low Dose Aspirin] 81 mg tablet,delayed release (DR/EC) 81 mg PO DAILY RF: 0 saw palmetto 160 mg capsule 160 mg PO BID RF: 0 echinacea 400 mg capsule 400 mg PO TID RF: 0 metoprolol tartrate 25 mg Tablet 12.5 mg PO BID RF: 0 magnesium oxide 400 mg magnesium Capsule 400 mg PO DAILY RF: 0 enoxaparin 100 mg/mL Syringe 100 mg SUBCUT BID RF: 0 atorvastatin 40 mg Tablet 40 mg PO HS RF: 0 bupropion HCl [Wellbutrin SR] 150 mg Tablet Sustained-Release 12 Hr 150 mg PO BID RF: 0 warfarin [Coumadin] 2.5 mg Tablet 2.5 mg PO .6DAYS A WEEK RF: 0 Discontinued tramadol 50 mg tablet 50 mg PO .qhs PRN (Reason: pain) Qty: 4 RF: 0 Discharge Instructions Additional Instructions: Dr. Decker HERNIA REPAIR ? POSTOPERATIVE INSTRUCTIONS Patients who have this type of surgery can usually be expected to return to work within two weeks and have minimal amounts of discomfort. ? ACTIVITY: The day of surgery should be spent resting. However, you can be up for short periods of time, I.E., going to the bathroom or kitchen. Avoid lifting or straining. On the day following surgery, you can be up and about as desired. ? LIFTING: Restrict your lifting to no more than five (5) pounds for the first week following surgery. ? DIET: There are no dietary restrictions following surgery. However, you may want to start with small amounts of liquids to avoid nausea the day of surgery. ? INCISION CARE: You will notice strips of tape covering the wound ? DO NOT REMOVE THESE STRIPS - they help the wound to heal. After 24 hours you may shower. The dressing may be replaced for comfort, but is not necessary. An ice bag may be applied to the incision for 72 hours following surgery. ? SIGNS OF INFECTION: It is not unusual to have some black and blue discoloration of the skin around the incision, but also scrotum and penis. It will slowly disappear. If you have any increased redness, drainage, fever (above 100 degrees), please contact your doctor for an examination. ? DISCOMFORT: You may expect to have some mild discomfort at the incision sight. If severe pain develops you should contact your doctor for further instructions. ? URINATION: Patients who have surgery occasionally have problems urinating. If you experience problems and are not able to urinate within 6 hours following your surgery, please call your doctor immediately or go to your nearest Emergency Room for evaluation. ? DRIVING: NO driving for five (5) days after surgery ? MEDICATIONS: Alternate Tylenol 1000mg by mouth every 8hours and Ibuprofen 600mg every 6hours. Take the Tylenol and ibuprofen continuously for the first 72hrs- not just when you have pain. Use the tramadol for breakthrough pain. Use ice 20 minutes off/on continuously for the first 72hours. If you are taking narcotic pain medication, follow the instructions on the label and do not drive. Pain medications can make you very constipated. Make sure you are moving your bowels daily. If not, take Miralax, milk of magnesia or magnesium citrate. ? REPORT: Unusual swelling, severe pain, unresolved nausea, signs of infection, or difficulty in urination to your surgeon. Follow up in clinic with Dr. Decker in 1-2 weeks [phone] Referrals: Erica Mckenzie [Primary Care Provider] - (This week please for anticoagulation follow up) Kenia Decker DO [OSTEOPATHIC DOCTOR] - 10/06/19 9:30 am Activity:: see above Equipment/Supplies:: No Equipment Needed Diet:: Carb Counting Discharge Orders Discharge Orders: Discharge Order (Routine); Ordered 09/28/19 Ordered By: Julissa Espino Exam GI Abdomen image: 1. DS: Data Vitals/I&O Vitals and I&O: Vital Signs Temperature 36.7 C 09/27/19 10:20 Pulse 63 09/27/19 10:20 Pulse Rhythm Irregular 09/27/19 06:45 Respiratory Rate 16 09/27/19 10:20 Respiratory Effort 09/27/19 06:45 Blood Pressure 136/64 09/27/19 10:20 Pulse Oximetry 95 09/27/19 10:20 Oxygen Delivery Method Room Air 09/27/19 10:20 Oxygen Flow Rate 6 09/27/19 10:15 Pain Level 0 09/27/19 10:20 Intake & Output 09/26/19 09/26/19 09/27/19 11:59 23:59 11:59 Intake Total 950 / 950 Output Total 100 / 100 Balance 850 / 850 Weight 95.9 kg Intake: IV 950 / 950 Output: Urine 100 / 100 Other: Urine Color Yellow Urine Appearance Clear Emesis Description None Data Completed and Pending Labs on day of discharge: Labs from last 24 hours 09/27/19 06:37 PT 9.6 INR 1.0 [facility] Medical History (Updated 09/28/19 @ 11:28 by Julissa Espino MD) Adjustment disorder (Acute) Blood glucose elevated (Acute) BPH (benign prostatic hyperplasia) (Chronic) 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) Chronic anticoagulation (Acute) 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) GERD (gastroesophageal reflux disease) (Chronic) Hydrocele in adult (Resolved) Hyperlipidemia (Acute) Hypertension (Chronic) Knee pain (Acute) Normal colonoscopy (Acute) Preop testing (Resolved) Reducible right inguinal hernia (Resolved) Tremor (Acute) Unresolved grief (Acute) Surgical History (Updated 09/28/19 @ 11:28 by Julissa Espino MD) H/O mitral valve replacement with mechanical valve (Acute) History of elbow surgery (Acute) Left History of esophagogastroduodenoscopy (EGD) (Chronic) History of hemorrhoidectomy (Chronic) S/P MVR (mitral valve repair) (Acute) Social History Smoking/Tobacco Use Status: Never Drug use: Never Do you feel safe in your relationship?: Yes Documented by User: Julissa Espino MD 09/28/19 11:44 Date of service: 09/28/19 Time of Service: 09:45 DS: Diagnosis Discharge Diagnosis (1) S/P right inguinal hernia repair: Status: Acute (2) H/O hydrocele: Status: Acute Discharge Plan Disposition Patient Disposition: HOME Condition: Good Discharge Details Reason For Visit: RIH/MECHANICAL MITRL VALVE/ R hydrocele Admit Date/Time: 09/27/19 09:00 Admit Provider: Kenia Decker Attending Provider: Kenia Decker Primary Care Provider: Erica Mckenzie Hospital Course Hospital Course: Mr. Go is a pleasant 79 year old male who underwent Right Inguinal hernia repair and hydrocelectomy with Dr. Decker on 09/27/19. He was admitted overnight for observation due to is anticoagulation for a Mechanical Mitral valve. Patient has done well overnight. He complains of pain with ambulation but that is controlled with Ultram. He has tolerated a regular diet. His labs are stable and he was restarted on Coumadin this am. He is discharged home on Tramadol 50 mg every 6 hours as needed, Tylenol 650 mg every 6 hours as needed. Recommend ice to scrotum and Right inguinal area as needed for swelling and comfort. He has support garment on. Home Meds and New Rx's Prescriptions: New acetaminophen [Tylenol] 325 mg Tablet 650 mg PO Q6H Qty: 30 RF: 0 tramadol 50 mg Tablet 50 mg PO Q4H PRN PRN (Reason: pain) Qty: 20 RF: 0 docusate sodium [Colace] 100 mg Capsule 100 mg PO TID Qty: 60 RF: 0 Continued famotidine [Pepcid] 20 mg tablet 20 mg PO HS RF: 0 terazosin 1 mg capsule 1 mg PO DAILY RF: 0 sildenafil (pulm.hypertension) 20 mg tablet 20 mg PO PRN RF: 0 loratadine [Allergy Relief (loratadine)] 10 mg tablet 10 mg PO DAILY RF: 0 vitamin B complex [B Complex-Vitamin B12] Tablet 1 tab PO DAILY RF: 0 ascorbate calcium (vitamin C) 500 mg tablet 500 mg PO DAILY RF: 0 cholecalciferol (vitamin D3) 4,000 unit capsule 4,000 unit PO DAILY RF: 0 vitamin E 200 unit capsule 200 unit PO DAILY RF: 0 omega-3 fatty acids [Fish Oil Concentrate] 1,000 mg capsule 1,000 mg PO DAILY RF: 0 ginkgo biloba 40 mg tablet 40 mg PO TID RF: 0 aspirin [Adult Low Dose Aspirin] 81 mg tablet,delayed release (DR/EC) 81 mg PO DAILY RF: 0 saw palmetto 160 mg capsule 160 mg PO BID RF: 0 echinacea 400 mg capsule 400 mg PO TID RF: 0 metoprolol tartrate 25 mg Tablet 12.5 mg PO BID RF: 0 magnesium oxide 400 mg magnesium Capsule 400 mg PO DAILY RF: 0 enoxaparin 100 mg/mL Syringe 100 mg SUBCUT BID RF: 0 atorvastatin 40 mg Tablet 40 mg PO HS RF: 0 bupropion HCl [Wellbutrin SR] 150 mg Tablet Sustained-Release 12 Hr 150 mg PO BID RF: 0 warfarin [Coumadin] 2.5 mg Tablet 2.5 mg PO .6DAYS A WEEK RF: 0 Discontinued tramadol 50 mg tablet 50 mg PO .qhs PRN (Reason: pain) Qty: 4 RF: 0 Discharge Instructions Additional Instructions: Dr. Decker HERNIA REPAIR ? POSTOPERATIVE INSTRUCTIONS Patients who have this type of surgery can usually be expected to return to work within two weeks and have minimal amounts of discomfort. ? ACTIVITY: The day of surgery should be spent resting. However, you can be up for short periods of time, I.E., going to the bathroom or kitchen. Avoid lifting or straining. On the day following surgery, you can be up and about as desired. ? LIFTING: Restrict your lifting to no more than five (5) pounds for the first week following surgery. ? DIET: There are no dietary restrictions following surgery. However, you may want to start with small amounts of liquids to avoid nausea the day of surgery. ? INCISION CARE: You will notice strips of tape covering the wound ? DO NOT REMOVE THESE STRIPS - they help the wound to heal. After 24 hours you may shower. The dressing may be replaced for comfort, but is not necessary. An ice bag may be applied to the incision for 72 hours following surgery. ? SIGNS OF INFECTION: It is not unusual to have some black and blue discoloration of the skin around the incision, but also scrotum and penis. It will slowly disappear. If you have any increased redness, drainage, fever (above 100 degrees), please contact your doctor for an examination. ? DISCOMFORT: You may expect to have some mild discomfort at the incision sight. If severe pain develops you should contact your doctor for further instructions. ? URINATION: Patients who have surgery occasionally have problems urinating. If you experience problems and are not able to urinate within 6 hours following your surgery, please call your doctor immediately or go to your nearest Emergency Room for evaluation. ? DRIVING: NO driving for five (5) days after surgery ? MEDICATIONS: Alternate Tylenol 1000mg by mouth every 8hours and Ibuprofen 600mg every 6hours. Take the Tylenol and ibuprofen continuously for the first 72hrs- not just when you have pain. Use the tramadol for breakthrough pain. Use ice 20 minutes off/on continuously for the first 72hours. If you are taking narcotic pain medication, follow the instructions on the label and do not drive. Pain medications can make you very constipated. Make sure you are moving your bowels daily. If not, take Miralax, milk of magnesia or magnesium citrate. ? REPORT: Unusual swelling, severe pain, unresolved nausea, signs of infection, or difficulty in urination to your surgeon. Follow up in clinic with Dr. Decker in 1-2 weeks [phone] Referrals: Erica Mckenzie [Primary Care Provider] - (This week please for anticoagulation follow up) Kenia Decker DO [OSTEOPATHIC DOCTOR] - 10/06/19 9:30 am Activity:: see above Equipment/Supplies:: No Equipment Needed Diet:: Carb Counting Discharge Orders Discharge Orders: Discharge Order (Routine); Ordered 09/28/19 Ordered By: Julissa Espino DS: Summary Status at Discharge Functional status at discharge: independent ambulation Overall status at discharge: patient is back to baseline Mental Status: mental status grossly normal Speech and Movement: speech and movement normal Mood: congruent mood Affect: normal affect Time Spent with Patient providing and/or coordinating discharge services: Less than 30 minutes Exam Const General: cooperative, no acute distress and well developed Orientation: oriented x3 HENMT Head: normocephalic and atraumatic Resp Effort & Inspection: normal respiratory effort Auscultation: clear to auscultation bilaterally Cardio Rate: regular rate Rhythm: regular rhythm Heart Sounds: click and no murmurs GI Inspection: normal to inspection and incision (bruising noted, minimal swelling) Palpation: soft Auscultation: normal bowel sounds Abdomen image: 1. 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) GERD (gastroesophageal reflux disease) (Chronic) Hydrocele in adult (Resolved) Hyperlipidemia (Acute) Hypertension (Chronic) Knee pain (Acute) Normal colonoscopy (Acute) Preop testing (Resolved) Reducible right inguinal hernia (Resolved) Tremor (Acute) Unresolved grief (Acute) Surgical History (Updated 09/28/19 @ 11:28 by Julissa Espino MD) H/O mitral valve replacement with mechanical valve (Acute) History of elbow surgery (Acute) Left History of esophagogastroduodenoscopy (EGD) (Chronic) History of hemorrhoidectomy (Chronic) S/P MVR (mitral valve repair) (Acute) Social History Smoking/Tobacco Use Status: Never Drug use: Never Do you feel safe in your relationship?: Yes
--- NOTE | 2019-09-27 10:33 | W.PM.PROGNOT ---
Date of Service Date of service: 09/27/19 Time of Service: 10:33 Assessment and Plan Assessment and plan (1) Hernia: Status: Chronic Assessment and plan: The patient is doing well post-op. There pain is well controlled. They are having no nausea or vomiting. The pt is not having any chest pain or SOB, productive cough; no calf pain or swelling. The pt is making good urine. The pt pain is adequately controlled. The case was discussed with nursing and patients progress reviewed. All of the pt's home medications were addressed and adjusted accordingly for their oral intact status. HEENT: no jaundice. no eye pain/drainage/redness/swelling. mild sore throat cardio- NSR no chest pain, BP stable. pulm: no sob or productive cough. no hemoptysis incision- clean/dry. dressing intact no excessive bleeding or drainage I discussed with the patient and/or there family about the findings in surgery and the pt's progress. We reviewed expectations for progress in the hospital; what the pt could expect for recovery time and length of stay. We discussed the importance of walking and pulmonary toilet to avoid blood clots and pneumonia. Continue current plans for pulmonary toilet, GI and DVT prophylaxis. We shall continue the current plan for pain management as it is at an appropriate level and working well for the pt. Appropriate measures will be taken for constipation prevention as well, and this was also reviewed with the pt. wound care plan was reviewed with nursing as well. He is going to have lots of swelling-use ice/scrotal support. We do need to start him back on his lovenox- will start at 10pm tonight- 1mg/kg. Will resume coumadin in am. continue on lovenox at home until therapeutic on Coumadin- pt has x3 doses of lovenox at home. see orders (2) Scrotal mass: Status: Acute (3) Reducible right inguinal hernia: Status: Acute (4) Blood glucose elevated: Status: Acute (5) Hyperlipidemia: Status: Acute (6) Hypertension: Status: Chronic (7) H/O mitral valve replacement with mechanical valve: Status: Acute (8) Hydrocele in adult: Status: Acute Objective Objective Clinical Data: Vital Signs Temperature 36.7 C 09/27/19 10:20 Pulse 63 09/27/19 10:20 Pulse Rhythm Irregular 09/27/19 06:45 Respiratory Rate 16 05/04/20 10:20 Respiratory Effort 09/27/19 06:45 Blood Pressure 136/64 09/27/19 10:20 Pulse Oximetry 95 09/27/19 10:20 Oxygen Delivery Method Room Air 09/27/19 10:20 Oxygen Flow Rate 6 09/27/19 10:15 Pain Level 0 09/27/19 10:20 Intake & Output 09/26/19 09/26/19 09/27/19 11:59 23:59 11:59 Intake Total 950 / 950 Output Total 100 / 100 Balance 850 / 850 Weight 95.9 kg Intake: IV 950 / 950 Output: Urine 100 / 100 Other: Urine Color Yellow Urine Appearance Clear Emesis Description None Laboratory Results PT 9.6 sec (9.3-11.0) 09/27/19 06:37 INR 1.0 (0.9-1.1) 09/27/19 06:37
[2019-09-27] MEDS: Ondansetron 4 MG/2 ML VIAL IVP (12:34)
[2019-09-27] MEDS: Normal Saline Flush 10 ML SYR IVP (13:48)
[2019-09-27] MEDS: Acetaminophen 325 MG TAB 650 MG PO ×2 (13:48→17:38)
[2019-09-27] MEDS: Docusate Sodium 100 MG CAP PO ×2 (15:04→20:12)
[2019-09-27] MEDS: traMADol 50 MG TAB PO (15:42)
[2019-09-27] MEDS: buPROPion-CR 150 MG TABCR PO (20:12)
[2019-09-27] MEDS: Lactated Ringers 1,000 ML 100 ML IV (20:12)
[2019-09-27] MEDS: Atorvastatin 40 MG TAB PO (22:20)
[2019-09-27] MEDS: Enoxaparin 100 MG/ML SYR SC (22:20)
[2019-09-27] MEDS: Famotidine 20 MG TAB PO (22:20)
[2019-09-28 03:34] VITALS: BP 118/67; PULSE 77; RESP 18; TEMP 36.3; O2SAT 96
[2019-09-28] MEDS: traMADol 50 MG TAB PO ×2 (05:00→09:00)
[2019-09-28] MEDS: Acetaminophen 325 MG TAB 650 MG PO ×2 (05:01→11:24)
[2019-09-28] MEDS: Lactated Ringers 1,000 ML 100 ML IV (05:42)
[2019-09-28 07:00] LABS: Abs Immature Grans 0.03 k/cumm (0.0-0.09); Absolute Basophil Count 0.01 k/cumm (0.0-0.2); Absolute Neutrophil Count 9.32 k/cumm (1.2-6.7); Basophils % 0.1; Eosinophils % 0.6; HCT 36.7 % (40.0-50.0); HGB 11.8 g/dL (13.5-17.5); Immature Grans % 0.2 %; Lymphocytes % 11.6; Mean Corp. HGB Concentration 32.2 g/dL (32.0-36.0); Mean Corpuscular Hemoglobin 30.5 pg (27.0-33.0); Mean Corpuscular Volume 94.8 fL (80-95); Mean Platelet Volume 11.3 fL (8.0-11.0); Monocytes % 14.2; Neutrophils % 73.3; Platelet Count 202 x1000/uL (130-400); RBC 3.87 m/cumm (4.50-6.00); RBC Distribution Width 12.8 % (11.8-14.1); White Blood Cell Count 12.71 k/cumm (4.4-10.8)
[2019-09-28 07:04] LABS: Absolute Eosinophil Count 0.08 k/cumm (0.0-0.7); Absolute Lymphocyte Count 1.47 k/cumm (1.2-3.4)
[2019-09-28 07:15] VITALS: BP 146/70; PULSE 64; RESP 18; TEMP 36.4; O2SAT 98
[2019-09-28 08:12] LABS: Diff Comment Diff Reviewed; RBC Morphology Normal
[2019-09-28] MEDS: Docusate Sodium 100 MG CAP PO (08:28)
[2019-09-28] MEDS: Milk of Magnesia 30 ML CUP PO (08:28)
[2019-09-28] MEDS: buPROPion-CR 150 MG TABCR PO (08:28)
[2019-09-28] MEDS: Loratidine 10 MG TAB PO (08:28)
[2019-09-28] MEDS: Warfarin 5 MG TAB PO (08:29)
[2019-09-28] MEDS: Enoxaparin 100 MG/ML SYR SC (09:19)
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
--- NOTE | 2019-09-28 17:05 | PDOC.CMDIS ---
- If Service Date Differs Date of service: 09/28/19 Time of Service: 17:05 LACE Index Scoring Tool - Questions: Length of Stay (in days): 2 Acuity (Admit via E.D.?): No E.D. Visits: 0 - Answers: Total Score: 2 Risk of Readmission: Low Risk Care Management Discharge Reason for Hospitalization: R Inguinal Hernia Discharge Plan: Grabiel will return home with no additional services. He will be transported home via [employer] private vehicle. He will follow up with his PCP and surgical, as recommended. He is agreeable to returning home. Patient/Family Education Needs: Review discharge instructions regarding activity levels and medications, discussion of self care needs including ask me three
== END 2019-09-28 12:22 | disposition home or self-care (01) | DRG 352 ==
LOC: MS 09-28 11:53 → PDS 06-05 19:23 → MS 06-05 19:23
PROVIDERS: Admitting Provider Surgery; PCP Nurse Practitioner Family; Visit Provider Surgery
PROC: 0YU50JZ Supplement Right Inguinal Region with Synthetic Substitute, Open Approach (ICD-10-PCS; CPT 49505; principal; 2019-09-27 07:30)
DX: K40.90 Unilateral inguinal hernia, without obstruction or gangrene, not specified as recurrent (principal); R73.9 Hyperglycemia, unspecified; E78.5 Hyperlipidemia, unspecified; I10 Essential (primary) hypertension; Z95.2 Presence of prosthetic heart valve; N43.3 Hydrocele, unspecified
CPT/HCPCS: 49505; 36415; 76942; NC; 85025; 85610; C1781; J0690; J1100; J1650; J2001; J2405; J2704

== ENCOUNTER → 2019-09-29 09:33 | Outpatient (BNVA) | payer OTHER, SELFPAY | PROVIDERS: PCP Nurse Practitioner Family; Referring Provider Nurse Practitioner Family; Visit Provider Surgery | DX: Z48.815 Encounter for surgical aftercare following surgery on the digestive system (principal); I10 Essential (primary) hypertension ==

== ENCOUNTER → 2019-10-04 11:22 | Outpatient (BNVA) | payer OTHER, SELFPAY | PROVIDERS: PCP Nurse Practitioner Family; Referring Provider Nurse Practitioner Family; Visit Provider Surgery | DX: Z48.815 Encounter for surgical aftercare following surgery on the digestive system (principal); Z87.438 Personal history of other diseases of male genital organs; Z87.19 Personal history of other diseases of the digestive system ==

== ENCOUNTER → 2019-10-13 09:40 | Outpatient (BNVA) | payer OTHER, SELFPAY | PROVIDERS: PCP Nurse Practitioner Family; Referring Provider Nurse Practitioner Family; Visit Provider Surgery | DX: Z48.815 Encounter for surgical aftercare following surgery on the digestive system (principal); Z87.438 Personal history of other diseases of male genital organs; Z87.19 Personal history of other diseases of the digestive system ==

== ENCOUNTER → 2020-03-06 14:10 | Outpatient (REF) | payer OTHER, SELFPAY ==
[2020-03-06 19:32] LABS: Anion Gap 9.8 mmol/L (3-11); BUN 20 mg/dL (7-18); CO2 25.2 mmol/L (21.0-32.0); CREATININE 1.23 mg/dL (0.70-1.30); Calcium 8.7 mg/dL (8.5-10.1); Calculated LDL 155 mg/dL (<100); Chloride 106 mmol/L (98-107); Cholesterol 225 mg/dL (<200); Estimated GFR 56.91 (mL/min/1.73m2); Glucose 88 mg/dL (74-106); HDL Cholesterol 48 mg/dL (40-60); Potassium 4.4 mmol/L (3.5-5.1); Sodium 141 mmol/L (136-145); Triglyceride 114 mg/dL (<150)
[2020-03-06 19:55] LABS: Hemoglobin A1C 5.4 % (<5.7)
== END ==
LOC: NCHCN 14:10
PROVIDERS: PCP Nurse Practitioner Family; Visit Provider Nurse Practitioner Family
DX: E78.5 Hyperlipidemia, unspecified (principal); I10 Essential (primary) hypertension
CPT/HCPCS: 80048; 80061; 83036

== ENCOUNTER 2020-04-11 10:09 | Outpatient (CLI) | payer OTHER, SELFPAY ==
--- NOTE | 2020-04-11 09:30 | DI.RAD_ITS ---
EXAM: XR ANKLE RT COMPLETE CLINICAL HISTORY: R ankle fx. TECHNIQUE: 2D digital imaging was performed. COMPARISON: No exams were available for comparison FINDINGS: BONES: There is an acute comminuted spiral fracture of the distal diaphysis of the right fibula. The fracture lies above the level of the ankle mortise. No bony destructive lesion is seen. Small plant ar calcaneal spur. Enthesophyte at the Achilles insertion site. JOINTS: The ankle mortise is normally aligned. SOFT TISSUE: Atherosclerosis. IMPRESSION: Comminuted right fibular fracture as described above. DATA REPOSITORY: RADIATION DOSE DELIVERED:
== END 2020-04-11 10:29 ==
LOC: DIORS 10:10
PROVIDERS: PCP Nurse Practitioner Family; Referring Provider Nurse Practitioner Family; Visit Provider Physician Assistant
DX: S82.451A Displaced comminuted fracture of shaft of right fibula, initial encounter for closed fracture (principal); X50.9XXA Other and unspecified overexertion or strenuous movements or postures, initial encounter
CPT/HCPCS: 99214; 73610

== ENCOUNTER 2020-05-09 11:40 | Outpatient (CLI) | payer OTHER, SELFPAY ==
--- NOTE | 2020-05-09 10:00 | DI.RAD_ITS ---
EXAM: XR ANKLE RT COMPLETE CLINICAL HISTORY: right fibula fracture. TECHNIQUE: 2D digital imaging was performed. COMPARISON: CR XR ANKLE RT COMPLETE from 04/11/2020 FINDINGS: BONES: There has been no change in alignment of the distal right fibular fracture. There has develop ed callus formation about the fracture consistent with some interval healing. No new fracture or dis location is present. No bony destructive lesion is seen. JOINTS: The ankle mortise is normally aligned. SOFT TISSUE: Atherosclerosis. IMPRESSION: Stable healing right fibular fracture. DATA REPOSITORY: RADIATION DOSE DELIVERED:
--- NOTE | 2020-05-09 10:15 | DI.RAD_ITS ---
EXAM: XR KNEE RT 3V AP,LAT,JUANITO CLINICAL HISTORY: right knee pain. TECHNIQUE: 2D digital imaging was performed. COMPARISON: CR XR knee RT 3V AP,lat,juanito from 08/12/2018 FINDINGS: BONES: No acute fracture is present. No bony destructive lesion is seen. JOINTS: The knee is normally aligned. No joint effusion is seen. There is narrowing of the patellofem oral joint space. SOFT TISSUE: Atherosclerosis. IMPRESSION: No acute or healing fracture. DATA REPOSITORY: RADIATION DOSE DELIVERED:
== END 2020-05-09 12:00 ==
PROVIDERS: PCP Nurse Practitioner Family; Referring Provider Nurse Practitioner Family; Visit Provider Student in an Organized Health Care Education/Training Program
DX: M25.561 Pain in right knee; S82.491D Other fracture of shaft of right fibula, subsequent encounter for closed fracture with routine healing; M17.11 Unilateral primary osteoarthritis, right knee; X58.XXXD Exposure to other specified factors, subsequent encounter
CPT/HCPCS: 20610; 73562; 99214; 73610; J1030

== ENCOUNTER 2020-06-15 11:55 | Outpatient (REF) | payer OTHER, SELFPAY ==
[2020-06-15 16:06] LABS: HCT 39.8 % (40.0-50.0); HGB 12.9 g/dL (13.5-17.5); MCH 30.9 pg (27.0-33.0); MCHC 32.4 % (32.0-36.0); MCV 95.4 fL (80-95); MPV 11.2 fL (8.0-11.0); Platelet Count 271 10^3/uL (130-400); RBC 4.17 10^6/uL (4.36-5.78); RDW 12.7 % (11.8-14.1); RDW-SD 44.5 fL
[2020-06-15 16:23] LABS: Anion Gap 9.7 mmol/L (3-11); BUN 21 mg/dL (7-18); CO2 24.3 mmol/L (21.0-32.0); CREATININE 1.11 mg/dL (0.70-1.30); Calcium 8.7 mg/dL (8.5-10.1); Calculated LDL 81 mg/dL (<100); Chloride 106 mmol/L (98-107); Cholesterol 143 mg/dL (<200); Glucose 84 mg/dL (74-106); HDL Cholesterol 49 mg/dL (40-60); Potassium 4.7 mmol/L (3.5-5.1); Sodium 140 mmol/L (136-145); Triglyceride 68 mg/dL (<150)
== END 2020-06-15 12:15 ==
LOC: NCHCN 11:55
PROVIDERS: PCP Nurse Practitioner Family; Visit Provider Nurse Practitioner Family
DX: E78.5 Hyperlipidemia, unspecified (principal); Z01.818 Encounter for other preprocedural examination
CPT/HCPCS: 80048; 80061; 85027

== ENCOUNTER 2020-06-27 10:45 | Outpatient (CLI) | payer OTHER, SELFPAY ==
--- NOTE | 2020-06-27 08:45 | DI.RAD_ITS ---
EXAM: XR ANKLE RT COMPLETE CLINICAL HISTORY: F/u. TECHNIQUE: 2D digital imaging was performed. COMPARISON: CR XR ANKLE RT COMPLETE from 05/09/2020 FINDINGS: BONES: There has been continued healing of the distal right fibular fracture. No change in alignment of the fracture is noted. No new fracture is identified. No bony destructive lesion is seen. A sma ll enthesophyte is seen at the Achilles insertion. A small plantar calcaneal spur is present. JOINTS: The ankle mortise is normally aligned. SOFT TISSUE: Atherosclerosis. IMPRESSION: Healing distal right fibular fracture. DATA REPOSITORY: RADIATION DOSE DELIVERED:
== END 2020-06-27 10:46 | disposition home or self-care (01) ==
LOC: DIORS 10:46
PROVIDERS: PCP Nurse Practitioner Family; Referring Provider Nurse Practitioner Family; Visit Provider Student in an Organized Health Care Education/Training Program
DX: S82.491A Other fracture of shaft of right fibula, initial encounter for closed fracture (principal); S82.831D Other fracture of upper and lower end of right fibula, subsequent encounter for closed fracture with routine healing; X58.XXXD Exposure to other specified factors, subsequent encounter; M25.561 Pain in right knee; M17.11 Unilateral primary osteoarthritis, right knee
CPT/HCPCS: 99213; 73610

== ENCOUNTER 2020-09-26 09:52 | Outpatient (CLI) | payer OTHER, SELFPAY ==
--- NOTE | 2020-09-26 09:30 | DI.RAD_ITS ---
Exam(s) XR HIP RT COMPLETE AP PELVIS EXAM: XR HIP RT COMPLETE AP PELVIS CLINICAL HISTORY: right hip pain. TECHNIQUE: 2D digital imaging was performed. COMPARISON: No exams were available for comparison FINDINGS: BONES: No acute fracture is present. No bony destructive lesion is seen. JOINTS: No dislocation present. Mild narrowing of the hip joints bilaterally. SOFT TISSUE: Atherosclerosis. Surgical clips are seen inferior to the pelvis which may represent a p rior vasectomy. IMPRESSION: Mild narrowing of the hip joints bilaterally. Atherosclerosis. DATA REPOSITORY: RADIATION DOSE DELIVERED:
== END 2020-09-26 09:53 | disposition home or self-care (01) ==
LOC: DIORS 09:52
PROVIDERS: PCP Nurse Practitioner Family; Referring Provider Nurse Practitioner Family; Visit Provider Student in an Organized Health Care Education/Training Program
DX: S82.831D Other fracture of upper and lower end of right fibula, subsequent encounter for closed fracture with routine healing (principal); M17.11 Unilateral primary osteoarthritis, right knee; M16.11 Unilateral primary osteoarthritis, right hip; X58.XXXD Exposure to other specified factors, subsequent encounter
CPT/HCPCS: 99213; 73502

== ENCOUNTER 2021-02-27 17:03 | Outpatient (REF) | payer OTHER, SELFPAY ==
[2021-03-01 14:11] LABS: COVID-19 RT-PCR UVMMC Result Negative (Negative)
== END 2021-02-27 17:04 | disposition home or self-care (01) ==
LOC: NCHCN 17:03
PROVIDERS: PCP Nurse Practitioner Family; Visit Provider Nurse Practitioner Family
DX: Z20.822 Contact with and (suspected) exposure to COVID-19 (principal); J06.9 Acute upper respiratory infection, unspecified
CPT/HCPCS: U0003

== ENCOUNTER → 2021-04-25 13:02 | Outpatient (BNVA) | payer OTHER, SELFPAY | PROVIDERS: PCP Nurse Practitioner Family; Referring Provider Nurse Practitioner Family; Visit Provider Psychiatry & Neurology Neurology | DX: G25.0 Essential tremor (principal); I10 Essential (primary) hypertension; E11.9 Type 2 diabetes mellitus without complications | CPT/HCPCS: 99214 ==

== ENCOUNTER 2021-05-04 18:08 | Outpatient (REF) | payer MEDICARE, SELFPAY ==
[2021-05-06 15:26] LABS: COVID-19 RT-PCR UVMMC Result Negative (Negative)
== END 2021-05-04 18:09 | disposition home or self-care (01) ==
LOC: LBN 18:08
PROVIDERS: PCP Nurse Practitioner Family; Visit Provider Family Medicine
DX: Z20.822 Contact with and (suspected) exposure to COVID-19 (principal); J06.9 Acute upper respiratory infection, unspecified
CPT/HCPCS: U0003

== ENCOUNTER 2021-05-17 09:07 | Outpatient (CLI) | payer MEDICARE, SELFPAY ==
--- NOTE | 2021-05-17 09:00 | RT.EKG_ITS ---
APPROVED REPORT Exam: Resting ECG Reason for Exam: [facility] Patient Location: O HR:82 bpm ECG Measurements Heart Rate 82 AXIS IA 181 P 32 QRSd 118 QRS -34 QT 382 T 20 QTc 446 Conclusion Sinus rhythm...normal P axis, V-rate 50- 99 Atrial premature complex...SV complex w/ short R-R interval Incomplete left bundle branch block...QRSd>110mS, terminal axis(-90,-1)
== END 2021-05-17 09:08 | disposition home or self-care (01) ==
LOC: DI.CARD 09:10
PROVIDERS: PCP Nurse Practitioner Family; Visit Provider Internal Medicine Cardiovascular Disease
DX: I43 Cardiomyopathy in diseases classified elsewhere (principal); Z95.2 Presence of prosthetic heart valve; I45.4 Nonspecific intraventricular block
CPT/HCPCS: 93010

== ENCOUNTER → 2021-05-17 13:17 | Outpatient (BNVA) | payer MEDICARE, SELFPAY | PROVIDERS: PCP Nurse Practitioner Family; Referring Provider Nurse Practitioner Family; Visit Provider Internal Medicine Cardiovascular Disease | DX: E78.5 Hyperlipidemia, unspecified (principal); I10 Essential (primary) hypertension; Z95.2 Presence of prosthetic heart valve; Z79.01 Long term (current) use of anticoagulants | CPT/HCPCS: 93005; 99203; 99214 ==

== ENCOUNTER 2021-06-29 14:45 | Outpatient (REF) | payer MEDICARE, SELFPAY | END 2021-06-29 14:46 | disposition home or self-care (01) | LOC: NCHCN 14:45 | PROVIDERS: PCP Nurse Practitioner Family; Visit Provider Nurse Practitioner Family | DX: L03.031 Cellulitis of right toe (principal) | CPT/HCPCS: 87077; 87070; 87186; 87205 ==

== ENCOUNTER 2021-08-17 15:13 | Outpatient (REF) | payer MEDICARE, SELFPAY ==
[2021-08-17 14:41] LABS: HCT 42.5 % (40.0-50.0); HGB 13.9 g/dL (13.5-17.5); MCH 30.2 pg (27.0-33.0); MCHC 32.7 % (32.0-36.0); MCV 92.4 fL (80-95); Platelet Count 228 10^3/uL (130-400); RDW 13.2 % (11.8-14.1); RDW-SD 44.9 fL; WBC 7.92 10^3/uL (4.4-10.8)
[2021-08-17 15:20] LABS: Anion Gap 10.8 mmol/L (3-11); BUN 24 mg/dL (7-18); CO2 23.2 mmol/L (21.0-32.0); CREATININE 1.3 mg/dL (0.70-1.30); Calculated LDL 78 mg/dL (<100); Chloride 108 mmol/L (98-107); Cholesterol 140 mg/dL (<200); Estimated GFR 53.25 (mL/min/1.73m2); Glucose 108 mg/dL (74-106); HDL Cholesterol 45 mg/dL (40-60); Potassium 3.8 mmol/L (3.5-5.1); Sodium 142 mmol/L (136-145); Triglyceride 87 mg/dL (<150)
== END 2021-08-17 15:14 | disposition home or self-care (01) ==
LOC: NCHCN 15:13
PROVIDERS: PCP Nurse Practitioner Family; Visit Provider Nurse Practitioner Family
DX: E78.5 Hyperlipidemia, unspecified (principal); I10 Essential (primary) hypertension
CPT/HCPCS: 80048; 80061; 85027

== ENCOUNTER 2022-03-07 09:13 | Outpatient (RCR) | payer MEDICARE, SELFPAY ==
--- NOTE | 2022-03-07 09:15 | HOLTER_ITS ---
APPROVED REPORT Conclusion Is a 48-hour Holter monitor ordered for an irregular heart rate Predominant rhythm is sinus with an average rate of 79. Minimum was 60, maximum 108 There were frequent ventricular ectopic beats. These comprise approximately 10% of total There were occasional ventricular couplets triplets and brief runs of nonsustained ventricular tachyc ardia. The longest of these was 7 beats in duration There were occasional atrial premature beats. A total of 5 self-limited atrial runs occurred. The l ongest of these was 5 beats in duration There was no atrial fibrillation, no high-grade AV block, no pauses greater than 3 seconds No patient symptoms were reported
== END 2022-03-25 23:59 | disposition home or self-care (01) ==
LOC: CARDOPNVT 09:13
PROVIDERS: PCP Nurse Practitioner Family; Visit Provider Nurse Practitioner Family
DX: R00.8 Other abnormalities of heart beat (principal); I47.29 Other ventricular tachycardia
CPT/HCPCS: 93227; 93225; 93226

== ENCOUNTER 2022-03-14 17:52 | Outpatient (REF) | payer MEDICARE, SELFPAY ==
[2022-03-14 19:38] LABS: Anion Gap 8.3 mmol/L (3-11); BUN 17 mg/dL (7-18); CO2 26.7 mmol/L (21.0-32.0); CREATININE 1.3 mg/dL (0.70-1.30); Calcium 8.7 mg/dL (8.5-10.1); Chloride 106 mmol/L (98-107); Estimated GFR 55.53 (mL/min/1.73m2); Glucose 99 mg/dL (74-106); Potassium 3.3 mmol/L (3.5-5.1); Sodium 141 mmol/L (136-145); TSH (W/Ref FT4) 1.72 uIU/mL (0.36-3.74); Vitamin B12 828 pg/mL (193-986)
== END 2022-03-14 17:53 | disposition home or self-care (01) ==
LOC: NCHCN 17:52
PROVIDERS: PCP Nurse Practitioner Family; Visit Provider Nurse Practitioner Family
DX: R20.2 Paresthesia of skin (principal)
CPT/HCPCS: 80048; 82607; 84443

== ENCOUNTER 2022-05-13 17:55 | Outpatient (REF) | payer MEDICARE, SELFPAY ==
[2022-05-13 19:09] LABS: Anion Gap 10.4 mmol/L (3-11); BUN 21 mg/dL (7-18); CO2 23.6 mmol/L (21.0-32.0); CREATININE 1.4 mg/dL (0.70-1.30); Calcium 8.7 mg/dL (8.5-10.1); Chloride 105 mmol/L (98-107); Estimated GFR 50.81 (mL/min/1.73m2); Glucose 156 mg/dL (74-106); Potassium 4.6 mmol/L (3.5-5.1); Sodium 139 mmol/L (136-145)
== END 2022-05-13 17:56 | disposition home or self-care (01) ==
LOC: NCHCN 17:55
PROVIDERS: PCP Nurse Practitioner Family; Visit Provider Nurse Practitioner Family
DX: E87.6 Hypokalemia (principal)
CPT/HCPCS: 80048

== ENCOUNTER → 2022-05-16 13:18 | Outpatient (BNVA) | payer MEDICARE, SELFPAY | PROVIDERS: PCP Nurse Practitioner Family; Referring Provider Nurse Practitioner Family; Visit Provider Internal Medicine Cardiovascular Disease | DX: I10 Essential (primary) hypertension (principal); E78.5 Hyperlipidemia, unspecified; Z95.2 Presence of prosthetic heart valve; Z79.01 Long term (current) use of anticoagulants | CPT/HCPCS: 99214 ==

== ENCOUNTER 2022-08-12 15:12 | Outpatient (REF) | payer MEDICARE, SELFPAY ==
[2022-08-12 16:05] LABS: Hemoglobin A1C 5.5 % (<5.7)
[2022-08-12 16:33] LABS: ALT 20 U/L (16-63); AST 29 U/L (15-37); Albumin 3.7 g/dL (3.4-5.0); Alkaline Phosphatase 100 U/L (46-116); Anion Gap 10.8 mmol/L (3-11); BUN 24 mg/dL (7-18); Bilirubin, Total 1.1 mg/dL (0.2-1.0); CO2 21.2 mmol/L (21.0-32.0); CREATININE 1.4 mg/dL (0.70-1.30); Calcium 9.2 mg/dL (8.5-10.1); Chloride 107 mmol/L (98-107); Estimated GFR 50.81 (mL/min/1.73m2); Glucose 102 mg/dL (74-106); Sodium 139 mmol/L (136-145); Total Protein 6.8 g/dL (6.4-8.2)
== END 2022-08-12 15:13 | disposition home or self-care (01) ==
LOC: NCHCN 15:12
PROVIDERS: PCP Nurse Practitioner Family; Visit Provider Nurse Practitioner Family
DX: I10 Essential (primary) hypertension (principal); R73.9 Hyperglycemia, unspecified; E87.6 Hypokalemia
CPT/HCPCS: 80053; 83036

== ENCOUNTER 2022-11-08 09:37 | Outpatient (REF) | payer MEDICARE, SELFPAY ==
[2022-11-08 17:06] LABS: INR 3.1 (0.9-1.1); Prothrombin Time 31.3 sec (9.3-11.0)
[2022-11-08 17:22] LABS: Anion Gap 7.3 mmol/L (3-11); BUN 31 mg/dL (7-18); CO2 24.7 mmol/L (21.0-32.0); CREATININE 1.7 mg/dL (0.70-1.30); Chloride 106 mmol/L (98-107); Glucose 184 mg/dL (74-106); Potassium 4.2 mmol/L (3.5-5.1); Sodium 138 mmol/L (136-145)
== END 2022-11-08 09:38 | disposition home or self-care (01) ==
LOC: NCHCN 09:37
PROVIDERS: PCP Nurse Practitioner Family; Visit Provider Nurse Practitioner Family
DX: E78.5 Hyperlipidemia, unspecified (principal); Z79.01 Long term (current) use of anticoagulants
CPT/HCPCS: 80048; 85610

== ENCOUNTER 2022-11-27 14:00 | Outpatient (REF) | payer MEDICARE, SELFPAY ==
[2022-11-27 16:01] LABS: Anion Gap 10.5 mmol/L (3-11); BUN 29 mg/dL (7-18); CO2 22.5 mmol/L (21.0-32.0); CREATININE 1.4 mg/dL (0.70-1.30); Calcium 8.6 mg/dL (8.5-10.1); Chloride 106 mmol/L (98-107); Estimated GFR 50.49 (mL/min/1.73m2); Glucose 94 mg/dL (74-106); Potassium 4.6 mmol/L (3.5-5.1); Sodium 139 mmol/L (136-145)
== END 2022-11-27 14:01 | disposition home or self-care (01) ==
LOC: NCHCN 14:00
PROVIDERS: PCP Nurse Practitioner Family; Visit Provider Nurse Practitioner Family
DX: R79.89 Other specified abnormal findings of blood chemistry (principal)
CPT/HCPCS: 80048

== ENCOUNTER 2023-02-24 16:24 | Outpatient (REF) | payer MEDICARE, SELFPAY | END 2023-02-24 16:25 | disposition home or self-care (01) | LOC: NCHCN 16:24 | PROVIDERS: PCP Nurse Practitioner Family; Visit Provider Nurse Practitioner Family | DX: F32.89 Other specified depressive episodes (principal); Z51.81 Encounter for therapeutic drug level monitoring; Z79.899 Other long term (current) drug therapy; I10 Essential (primary) hypertension | CPT/HCPCS: 83735 ==

== ENCOUNTER → 2023-03-20 03:20 | Outpatient (CLI) | payer MEDICARE, SELFPAY ==
--- NOTE | 2023-03-20 | DI.US_ITS ---
Exam(s) US AAA SCREENING EXAM: US AAA SCREENING CLINICAL HISTORY: H/O TOBACCO USE, Z87.891; SCREENING FOR CARDIOVASCULAR CONDITION, Z13.6; COMPARISON: No exams were available for comparison FINDINGS: Abdominal Aorta: Proximal: Not visualized due to overlying bowel gas. Mid: 2.0 cm Distal: 1.6 cm Iliacs: Right: 1.2 cm Left: 1.2 cm IMPRESSION: No evidence of abdominal aortic aneurysm. DATA REPOSITORY:
== END ==
PROVIDERS: PCP Nurse Practitioner Family; Visit Provider Nurse Practitioner Family
DX: Z13.6 Encounter for screening for cardiovascular disorders (principal); Z87.891 Personal history of nicotine dependence
CPT/HCPCS: 76706

== ENCOUNTER 2023-06-12 10:47 | Outpatient (CLI) | payer MEDICARE, SELFPAY ==
--- NOTE | 2023-06-12 10:45 | RT.EKG_ITS ---
APPROVED REPORT Exam: Resting ECG Reason for Exam: follow up Patient Location: O HR:67 bpm ECG Measurements Heart Rate 67 AXIS TN 193 P -3 QRSd 123 QRS -30 QT 417 T 38 QTc 441 Conclusion Sinus rhythm...normal P axis, V-rate 50- 99 Ventricular premature complex...V complex w/ short R-R interval Left bundle branch block...QRSd>120, broad/notched R I have reviewed and interpreted ECG and agree with software generated interpretation.
== END 2023-06-12 10:48 | disposition home or self-care (01) ==
LOC: DI.CARD 10:52
PROVIDERS: PCP Nurse Practitioner Family; Visit Provider Internal Medicine Interventional Cardiology
DX: Z95.2 Presence of prosthetic heart valve (principal)
CPT/HCPCS: 93010

== ENCOUNTER → 2023-06-12 10:47 | Outpatient (BNVA) | payer MEDICARE, SELFPAY | PROVIDERS: PCP Nurse Practitioner Family; Referring Provider Nurse Practitioner Family; Visit Provider Internal Medicine Interventional Cardiology | DX: Z95.2 Presence of prosthetic heart valve (principal); I10 Essential (primary) hypertension | CPT/HCPCS: 93005; 99213 ==

== ENCOUNTER 2023-10-09 09:00 | Outpatient (REF) | payer MEDICARE, SELFPAY ==
[2023-10-09 16:37] LABS: Anion Gap 11.5 mmol/L (3-11); BUN 40 mg/dL (7-18); CO2 22.5 mmol/L (21.0-32.0); CREATININE 1.5 mg/dL (0.70-1.30); Calcium 9.2 mg/dL (8.5-10.1); Chloride 109 mmol/L (98-107); Estimated GFR 46.19 (mL/min/1.73m2); Glucose 96 mg/dL (74-106); Potassium 4.3 mmol/L (3.5-5.1); Sodium 143 mmol/L (136-145)
== END 2023-10-09 09:01 | disposition home or self-care (01) ==
LOC: NCHCN 09:00
PROVIDERS: PCP Nurse Practitioner Family; Visit Provider Nurse Practitioner Family
DX: I10 Essential (primary) hypertension (principal)
CPT/HCPCS: 80048

== ENCOUNTER → 2023-11-13 00:36 | Outpatient (CLI) | payer MEDICARE, SELFPAY ==
--- NOTE | 2023-11-13 | DI.RAD_ITS ---
Exam(s) XR KNEE LT 3V AP,LAT,JUANITO EXAM: XR KNEE LT 3V AP,LAT,JUANITO CLINICAL HISTORY: PAIN OF L KNEE, M25.562. TECHNIQUE: 2D digital imaging was performed of the left knee. Three images were obtained. AP, late ral and PA tunnel views were obtained. COMPARISON: There are no priors for comparison. FINDINGS: BONES: No acute fracture is present. No bony destructive lesion is seen. JOINTS: The knee is normally aligned. There is a very small joint effusion. No loose body. SOFT TISSUE: Vascular calcifications are present. IMPRESSION: 1. No acute abnormality. 2. Very small joint effusion. DATA REPOSITORY: RADIATION DOSE DELIVERED:
--- NOTE | 2023-11-13 | DI.RAD_ITS ---
Exam(s) XR KNEE RT 3V AP,LAT,JUANITO EXAM: XR KNEE RT 3V AP,LAT,JUANITO CLINICAL HISTORY: PAIN OF R KNEE, M25.561. TECHNIQUE: 2D digital imaging was performed of the right knee. Three views obtained. AP, lateral an d PA tunnel views were obtained. COMPARISON: CR XR KNEE RT 3V AP,LAT,JUANITO from 05/09/2020 FINDINGS: BONES: No acute fracture is present. No bony destructive lesion is seen. JOINTS: The knee is normally aligned. No joint effusion is seen. SOFT TISSUE: Extensive vascular calcification is present. IMPRESSION: Extensive vascular calcification is present. DATA REPOSITORY: RADIATION DOSE DELIVERED:
--- OUTSIDE RECORDS SUMMARY | 2023-11-13 00:42 | XMS_ITS | Continuity of Care Document ---
Author Name Unknown Organization [facility] Ambulatory Clinics Address [address] [place] [address] Care Team Providers Care Veneer Lathe Operator Name Role Phone JULISSA AGUIAR Primary Care Physician Encounter [facility] NBR [id number] Date(s): 04/11/22 - 04/11/22 [facility] [address], [place] [address] Discharge Disposition: Home or Self Care Attending Physician: Nisreen Rosales APRN Allergies, Adverse Reactions, Alerts Substance Reaction Severity Status Sertraline Hydrochloride Unknown Mild Act roberto Functional Status 04/11/22 Living Environment Home Environment No qualifying data available Other exposure to Infectious Disease Non e Medications aspirin 81 mg oral capsule 1 Unknown, 0 Refill(s) Start Date: 04/04/22 Status: Ordered atorvastatin 40 mg oral tablet 1 Unknown, 0 Refill(s) Start Date: 04/04/22 Status: Ordered B-Complex SR 0 Refill(s) Start Date: 04/04/22 Status: Ordered famotidine 20 mg oral tablet 1 Unknown, 0 Refill(s) Start Date: 04/04/22 Status: Ordered Fish Oil 1000 mg oral capsule 1 Unknown, 0 Refill(s) Start Date: 04/04/22 Status: Ordered fluticasone propionate 1 Unknown, 0 Refill(s) Start Date: 04/04/22 Status: Ordered loratadine 10 mg oral capsule 1 Unknown, 0 Refill(s) Start Date: 04/04/22 Status: Ordered methylphenidate 20 mg oral tablet BID, 1 Unknown, 0 Refill(s) Start Date: 04/04/22 Status: Ordered metoprolol tartrate 25 mg oral tablet BID, 0 Refill(s) Start Date: 04/04/22 Status: Ordered mirtazapine 15 mg oral tablet 1 Unknown, 0 Refill(s) Start Date: 04/04/22 Status: Ordered Protonix 40 mg oral delayed release tablet 1 Unknown, 0 Refill(s) Start Date: 04/04/22 Status: Ordered sildenafil 20 mg oral tablet 1 Unknown, 0 Refill(s) Start Date: 04/04/22 Status: Ordered terazosin 1 mg oral capsule BID, 0 Refill(s) Start Date: 04/04/22 Status: Ordered Vitamin C 500 mg oral tablet 0 Refill(s) Start Date: 04/04/22 Status: Ordered Vitamin D3 400 intl units oral capsule 1 Unknown, 0 Refill(s) Start Date: 04/04/22 Status: Ordered vitamin E 400 intl units oral capsule 1 Unknown, 0 Refill(s) Start Date: 04/04/22 Status: Ordered warfarin 2.5 mg oral tablet 1 Unknown, 0 Refill(s) Start Date: 04/04/22 Status: Ordered Problem List Condition Confirmation Course Effective Dates Status H ealth Status Informant Diverticular disease Confirmed Active Oropharyngeal dysphagia Confirmed Active Patient encounter status Confirmed Active Procedures Procedure Date Related Diagnosis Body Site Status Colonoscopy Completed Hemorrhoidectomy Complete d Hemorrhoidectomy Complete d MVR - Mitral valve replacement Completed Vital Signs Most recent to oldest [Reference Range]: 1 Temperature Temporal Artery [36-38 Deg C ] 36.1 Deg C (04/11/22 1:13 PM) Apical Heart Rate [60-100 bpm] 80 bpm (04/11/22 1:13 PM) Respiratory Rate [12-24 br/min] 16 br/mi n (04/11/22 1:13 PM) Blood Pressure [90-140/60-90 mmHg] 134/7 2mmHg (04/11/22 1:13 PM) Weight 84 kg (04/11/22 1:13 PM) Weight Measured (lbs) 185.188 lb (04/11/22 1:13 PM) [place] Body Weight Calculated 65.937 kg (04/11/22 1:13 PM) Height 170 cm (04/11/22 1:13 PM) Height/Length Measured (inches) 66.93 in ch (04/11/22 1:13 PM) BSA Measured 1.99 m2 (04/11/22 1:13 PM) Body Mass Index 29.07 kg/m2 (04/11/22 1:13 PM) Social History Social History Type Response Tobacco Former tobacco user Tobacco Use:. Sex Patient Care team information Personnel Name: JULISSA AGUIAR Address: Address: [address] [place] [address] [address] [place], [place] [address]
== END ==
PROVIDERS: PCP Nurse Practitioner Family; Visit Provider Nurse Practitioner Family
DX: M25.561 Pain in right knee (principal); M25.562 Pain in left knee
CPT/HCPCS: 73562

== ENCOUNTER 2023-12-12 10:38 | Emergency (ER) | payer MEDICARE, SELFPAY ==
[2023-12-12 10:52] VITALS: BP 118/52; PULSE 76; RESP 16; O2SAT 97
--- OUTSIDE RECORDS SUMMARY | 2023-12-12 10:58 | XMS_ITS | Encounter Summary ---
Author Organization [facility] Address [address] [place] [address] Care Team Providers Care Manager Radiation Name Role Phone Unavailable Primary Care Provider Unavailabl e Encounter Details Date Type Department Care Team (Late st Contact Info) Description 02/28/2021 Lab Requisition [facility] Pathology & Laboratory Medicine - [facility] [address] [place] [address] Outr Resulting Lab, Provider Social History Tobacco Use Types Packs/Day Years Used Date Smoking Tobacco: Never Assessed Interpersonal Safety Answer Date Record ed Physically Hurt Never 04/18/2020 Verbally Threaten Not on file 04/18/2020 Sex and Gender Information Value Date Recorded Sex Assigned at Not on file Gender Identity Not on file Sexual Orientation Not on file documented as of this encounter Plan of Treatment Not on file documented as of this encounter Procedures Procedure Name Priority Date/Time Associated Diagnosis Comments ZZCOVID-19 TEST [facility] PCR Today 02/27/2021 14:45 EDT COVID-19 TESTING Routine 02/27/2021 14:4 5 EDT documented in this encounter Results * COVID-19 TEST [facility] PCR (02/27/2021 14:45 EDT) Swab ENTIRE NASOPHARYNX / Unknown 02/27/2021 14:45 EDT 02/28/2021 17:53 EDT Provider Outr Resulting Lab MICROBIOLOGY - GENERAL ORDERABLES [facility] [address] [place] [address] * COVID-19 TESTING (02/27/2021 14:45 EDT) COVID-19 rt-PCR Result Negative Negative 03/01/2021 14:06 EDT [facility] Comment: This test has not been FDA cleared or approved. This test has been authorized by FDA under an EUA for use by authorized laboratories. This test has been authorized only for detection of nucleic acid from 2019-nCoV, not for any other viruses or pathogens. This test is only authorized for the duration of the declaration that circumstances exist justifying the authorization of emergency use of in vitro diagnostic tests for detection and/or diagnosis of 2019-nCoV under section 564(b)(1) of Act, 21 U.S.C ?? 360bbb-3(b) (1), unless the authorization is terminated or revoked sooner. Negative results do not preclude 2019-nCoV infection and should not be used as the sole basis for treatment or other patient management decisions. Negative results must be combined with clinical observations, patient history, and epidemiological information. Testing was performed using the jazmín SARS-CoV-2 assay ([employer] on the Jazmín 6800 System Performing Lab [facility] [address] [facility] Lab 03/01/2021 14:06 EDT [facility] Swab 02/27/2021 14:4 5 EDT 02/28/2021 17:53 EDT Provider Outr Resulting Lab MICROBIOLOGY - GENERAL ORDERABLES [facility] [address] [place] [address] documented in this encounter Visit Diagnoses Not on filedocumented in this encounter
--- OUTSIDE RECORDS SUMMARY | 2023-12-12 10:58 | XMS_ITS | Encounter Summary ---
Author Organization [facility] Address [address] [place] [address] Care Team Providers Care Stock Saw Operator Name Role Phone Unavailable Primary Care Provider Unavailabl e Encounter Details Date Type Department Care Team (Late st Contact Info) Description 09/21/2019 Lab Requisition [facility] Pathology & Laboratory Medicine - [facility] [address] [place] [address] Outr Resulting Lab, Provider Social History Tobacco Use Types Packs/Day Years Used Date Smoking Tobacco: Never Assessed Sex and Gender Information Value Date Recorded Sex Assigned at Not on file Gender Identity Not on file Sexual Orientation Not on file documented as of this encounter Plan of Treatment Not on file documented as of this encounter Procedures Procedure Name Priority Date/Time Associated Diagnosis Comments ZZCOVID-19 TEST [facility] PCR Today 09/21/2019 9:00 EDT COVID-19 TESTING Routine 09/21/2019 9:00 EDT documented in this encounter Results * COVID-19 TEST [facility] PCR (09/21/2019 9:00 EDT) Swab ENTIRE NASOPHARYNX / Unknown 09/21/2019 9:00 EDT 09/21/2019 21:00 EDT Provider Outr Resulting Lab MICROBIOLOGY - GENERAL ORDERABLES [facility] [address] [place] [address] * COVID-19 TESTING (09/21/2019 9:00 EDT) COVID-19 rt-PCR Result Negative Negative 09/22/2019 13:45 EDT [facility] Comment: Negative results do not preclude 2019-nCoV infection and should not be used as the sole basis for treatment or other patient management decisions. Negative results must be combined with clinical observations, patient history, and epidemiological information. This test has not been FDA cleared or approved. This test has been internally validated, but independent review and determination of emergency use authorization ??(EUA) by the FDA is pending. Performed on the [employer] Fast Performing Lab [facility] Lab 09/22/2019 13:45 EDT [facility] Swab ENTIRE NASOPHARYNX / Unknown 09/21/2019 9:00 EDT 09/21/2019 21:00 EDT Provider Outr Resulting Lab MICROBIOLOGY - GENERAL ORDERABLES [facility] [address] [place] [address] documented in this encounter Visit Diagnoses Not on filedocumented in this encounter
--- OUTSIDE RECORDS SUMMARY | 2023-12-12 10:58 | XMS_ITS | Clinical Summary ---
Author Organization [facility] Address [address] [place] [address] Care Team Providers Care Welding Machine Operator Electron Beam Name Role Phone Unavailable Primary Care Provider Unavailabl e Social History Tobacco Use Types Packs/Day Years Used Date Smoking Tobacco: Never Assessed Interpersonal Safety Answer Date Record ed Physically Hurt Never 04/18/2020 Verbally Threaten Not on file 04/18/2020 Sex and Gender Information Value Date Recorded Sex Assigned at Not on file Gender Identity Not on file Sexual Orientation Not on file Plan of Treatment Health Maintenance Due Date Last Done Comments RSV Immunization ( o r 60+ Years) (1 - 1-dose 60+ series) 2001 Fall Risk Screening 2006 COVID-19 Vaccine (2022- season) 2023
--- OUTSIDE RECORDS SUMMARY | 2023-12-12 10:58 | XMS_ITS | Encounter Summary ---
Author Organization [facility] Address [address] [place] [address] Care Team Providers Care Outside Property Agent Name Role Phone Unavailable Primary Care Provider Unavailabl e Encounter Details Date Type Department Care Team (Late st Contact Info) Description 05/05/2021 Lab Requisition [facility] Pathology & Laboratory Medicine - [facility] [address] [place] [address] Outr Resulting Lab, Provider Social History Tobacco [...] Priority Date/Time Associated Diagnosis Comments ZZCOVID-19 TEST [facility] PCR Today 05/04/2021 17:00 EST COVID-19 TESTING Routine 05/04/2021 17:0 0 EST documented in this encounter Results * COVID-19 TEST [facility] PCR (05/04/2021 17:00 EST) Swab 05/04/2021 17:0 0 EST 05/05/2021 21:35 EST Provider Outr Resulting Lab MICROBIOLOGY - GENERAL ORDERABLES [facility] [address] [place] [address] * COVID-19 TESTING (05/04/2021 17:00 EST) COVID-19 rt-PCR Result Negative Negative 05/06/2021 15:21 EST [facility] Comment: This test has [...] patient history, and epidemiological information. This test was developed and its performance characteristics determined by [facility]. It has not been cleared or approved by the US Food and Drug Administration. FDA does not require this test to go through premarket FDA review. This test is used for clinical purposes. It should not be regarded as investigational or for research. This laboratory is certified under the Clinical Laboratory Improvement Amendments (CLIA) as qualified to perform high complexity clinical laboratory testing. This test is based on the CDC COVID-19 Emergency Use Authorization (EUA) assay, with minor modification as defined by the FDA Performed on the [employer] 7 Flex RT-PCR System. Performing Lab [facility] Lab 05/06/2021 15:21 EST [facility] Swab 05/04/2021 17:0 0 EST 05/05/2021 21:35 EST Provider Outr Resulting Lab MICROBIOLOGY - GENERAL ORDERABLES [facility] [address] [place] [address] documented in this encounter Visit Diagnoses Not on filedocumented in this encounter
--- OUTSIDE RECORDS SUMMARY | 2023-12-12 10:58 | XMS_ITS | Referral Summary ---
Author Organization [facility] Address [address] [place] [address] Care Team Providers Care Operations Section Manager Name Role Phone Unavailable Primary Care Provider [...] Orientation Not on file Plan of Treatment Not on file
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
== END 2023-12-12 12:03 | disposition home or self-care (01) ==
PROVIDERS: Emergency Provider Student in an Organized Health Care Education/Training Program; PCP Nurse Practitioner Family
DX: M54.50 Low back pain, unspecified (principal); I10 Essential (primary) hypertension; E78.5 Hyperlipidemia, unspecified; Z79.01 Long term (current) use of anticoagulants; Z95.2 Presence of prosthetic heart valve; Z79.82 Long term (current) use of aspirin
CPT/HCPCS: 99283

== ENCOUNTER 2024-01-05 22:09 | Outpatient (REF) | payer MEDICARE, SELFPAY ==
[2024-01-06 12:47] LABS: COVID-19 PCR Negative (Negative); Source Nasal/Nares
== END 2024-01-05 22:10 | disposition home or self-care (01) ==
LOC: LBN 22:09
PROVIDERS: PCP Nurse Practitioner Family; Visit Provider Nurse Practitioner Family
DX: M25.561 Pain in right knee (principal); M25.562 Pain in left knee
CPT/HCPCS: 87635

== ENCOUNTER 2024-05-10 09:17 | Outpatient (REF) | payer MEDICARE, SELFPAY ==
[2024-05-11 12:25] LABS: Fentanyl Scr w/Rfx Confirm Negative ng/mL (<1)
[2024-05-14 11:27] LABS: Benzoylecgonine 238 ng/mL (Cutoff: 50); Cocaine Negative ng/mL (Cutoff: 50); Cocaine Interpretation Positive.
[2024-05-15 07:44] LABS: Methylphenidate Negative ng/mL (Cutoff: 10)
== END 2024-05-10 09:18 | disposition home or self-care (01) ==
LOC: NCHCN 09:17
PROVIDERS: PCP Nurse Practitioner Family; Visit Provider Nurse Practitioner Family
DX: F90.9 Attention-deficit hyperactivity disorder, unspecified type (principal)
CPT/HCPCS: 80307; 80360; 80353

== ENCOUNTER 2024-05-17 14:35 | Outpatient (REF) | payer MEDICARE, SELFPAY ==
[2024-05-20 13:34] LABS: Fentanyl Scr w/Rfx Confirm Negative ng/mL (<1)
[2024-05-22 15:36] LABS: Benzoylecgonine 128 ng/mL (Cutoff: 50); Cocaine Negative ng/mL (Cutoff: 50); Cocaine Interpretation Positive.
== END 2024-05-17 14:36 | disposition home or self-care (01) ==
LOC: NCHCN 14:35
PROVIDERS: PCP Nurse Practitioner Family; Visit Provider Nurse Practitioner Family
DX: Z51.81 Encounter for therapeutic drug level monitoring (principal)
CPT/HCPCS: 80307; 80353

== ENCOUNTER 2024-08-08 04:00 | Emergency (ER) | payer MEDICARE, SELFPAY ==
[2024-08-08 04:04] VITALS: BP 196/74; PULSE 83; RESP 18; TEMP 36.6; O2SAT 95
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
[2024-08-08 04:20] LABS: HCT 37.1 % (40.0-50.0); HGB 12.1 g/dL (13.5-17.5); MCH 31.1 pg (27.0-33.0); MCHC 32.6 % (32.0-36.0); MCV 95 fL (80-95); MPV 10.4 fL (8.0-11.0); Platelet Count 243 10^3/uL (130-400); RBC 3.89 10^6/uL (4.36-5.78); RDW 14.4 % (11.8-14.1); RDW-SD 50.4 fL; WBC 7.85 10^3/uL (4.4-10.8)
--- NOTE | 2024-08-08 04:28 | DI.CT_ITS ---
Exam(s) CT HEAD WO EXAM: CT HEAD WO CLINICAL HISTORY: fell, hit posterior scalp, on coumadin. TECHNIQUE: Imaging Protocol: Axial computed tomography images with coronal and sagittal reformatted images were created and reviewed COMPARISON: No exams were available for comparison FINDINGS: Ventricles and Extra axial spaces: Normal in size and morphology for the patient's age. Hemorrhage: None. Cerebral parenchyma: There is an area of encephalomalacia involving the posterior left parietal lobe. There are areas of decreased attenuation in the white matter consistent with chronic microvascular ischemic disease. No acute territorial infarct is seen. Midline shift: None. Brainstem/Cerebellum: Normal. Calvarium: Normal. Visualized Paranasal sinuses/Mastoids: There is near complete opacification of the right maxillary si nus. Opacification of several ethmoid air cells bilaterally. There is mucosal thickening seen in th e sphenoid sinuses and the frontal sinuses. The mastoid air cells are clear. Soft Tissues: Unremarkable. IMPRESSION: 1. No acute intracranial process. 2. Pansinusitis. RADIATION DOSE DELIVERED: 835.17mGy.cm Total DLP DATA REPOSITORY: All CT scans at this facility are submitted to the National Radiology Data Registry (NRDR) Dose Index Registry (DIR) with the [employer] (ACR). RADIATION OPTIMIZATION: All CT scans at this facility use at least one of these dose optimization te chniques: automated exposure control; mA and/or kV adjustment per patient size (includes targeted exa ms where dose is matched to clinical indication); or iterative reconstruction.
[2024-08-08 04:31] LABS: INR 3.2 (0.9-1.1); PTT Activated 38.6 sec (20.6-30.2); Prothrombin Time 29.9 sec (9.1-11.1)
[2024-08-08 04:37] VITALS: PULSE 75; O2SAT 96
[2024-08-08 04:40] VITALS: PULSE 73; O2SAT 95
--- NOTE | 2024-08-08 04:45 | DI.VRAD_ITS ---
PROCEDURE INFORMATION: Exam: CT Head Without Contrast Exam date and time: 08/08/2024 4:15 AM Age: 83 years old Clinical indication: Other: Fell, hit posterior scalp, on coumadin TECHNIQUE: Imaging protocol: Computed tomography of the head without contrast. COMPARISON: No relevant prior studies available. FINDINGS: Brain: Small area encephalomalacia/gliosis in the left parietal lobe. Generalized volume loss of the brain. No intracranial hemorrhage. Cerebral ventricles: No ventriculomegaly. Paranasal sinuses: Multifocal sinusitis. Mastoid air cells: Unremarkable. Bones: Unremarkable. No acute fracture. Soft tissues: Unremarkable. IMPRESSION: 1. Multifocal sinusitis. 2. No intracranial hemorrhage. Dictated and Authenticated by: Scott Domínguez MD. Orderin Vic Ya MD
[2024-08-08 04:50] VITALS: PULSE 77; O2SAT 95
[2024-08-08 04:51] VITALS: BP 158/64; PULSE 76; O2SAT 95
== END 2024-08-08 04:57 | disposition home or self-care (01) ==
PROVIDERS: Emergency Provider Student in an Organized Health Care Education/Training Program; PCP Nurse Practitioner Family
DX: S00.81XA Abrasion of other part of head, initial encounter (principal); W06.XXXA Fall from bed, initial encounter; Z79.01 Long term (current) use of anticoagulants; I10 Essential (primary) hypertension
CPT/HCPCS: 85027; 99284; 70450; 85610; 85730; 99283

== ENCOUNTER 2024-08-25 14:18 | Emergency (ER) | payer MEDICARE, SELFPAY ==
[2024-08-25 14:29] VITALS: BP 156/93; PULSE 76; RESP 14; TEMP 36.6; O2SAT 95
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
[2024-08-25 16:25] LABS: Abs Immature Grans 0.03 10^3/uL (0.0-0.06); Absolute Basophil Count 0.02 10^3/uL (0.0-0.2); Absolute Lymphocyte Count 1.77 10^3/uL (1.2-3.4); Absolute Monocyte Count 0.78 10^3/uL (0.1-0.8); Absolute Neutrophil Count 6.37 10^3/uL (1.2-6.7); Basophils % 0.2 %; Eosinophils % 1.1 %; HCT 40.8 % (40.0-50.0); HGB 13.5 g/dL (13.5-17.5); Immature Grans % 0.3 %; Lymphocytes % 19.5 %; MCH 31.4 pg (27.0-33.0); MCHC 33.1 % (32.0-36.0); MCV 95 fL (80-95); MPV 10.9 fL (8.0-11.0); Monocytes % 8.6 %; Neutrophils % 70.3 %; Platelet Count 250 10^3/uL (130-400); RDW 14.4 % (11.8-14.1); RDW-SD 50.1 fL; WBC 9.07 10^3/uL (4.4-10.8)
[2024-08-25 16:41] LABS: INR 1.7 (0.9-1.1); PTT Activated 28.4 sec (20.6-30.2); Prothrombin Time 16.1 sec (9.1-11.1)
[2024-08-25 16:43] LABS: ALT 17 U/L (16-63); AST 20 U/L (15-37); Albumin 3.8 g/dL (3.4-5.0); Alkaline Phosphatase 99 U/L (46-116); Anion Gap 7.9 mmol/L (3-11); BUN 15 mg/dL (7-18); Bilirubin, Total 1.7 mg/dL (0.2-1.0); CO2 28.1 mmol/L (21.0-32.0); CREATININE 1.5 mg/dL (0.70-1.30); Calcium 9.2 mg/dL (8.5-10.1); Chloride 106 mmol/L (98-107); Estimated GFR 46.19 (mL/min/1.73m2); Glucose 92 mg/dL (74-106); Potassium 4.3 mmol/L (3.5-5.1); Sodium 142 mmol/L (136-145); Total Protein 7.6 g/dL (6.4-8.2)
[2024-08-25 16:50] VITALS: BP 159/86; PULSE 76; RESP 16; O2SAT 96
--- NOTE | 2024-08-25 17:15 | W.EDPROG ---
Date of service: 08/25/24 Time of Service: 17:15 Medical Decision Making This dictation utilizes [id number] dictation software and may contain unedited grammatical errors. Patient seen in signout from Justyna Moss PA-C. Please see her complete note. Essentially this 83-year-old male presents with some black tarry stools that started yesterday without any nausea or vomiting or severe indigestion, has no abdominal pain, per bedside by parents signout he had no blood on rectal exam, has a reassuring abdominal exam, pending labs at this time, plan to have the patient follow-up with PCP/general surgery for elective endoscopy colonoscopy with normal labs. Patients' medical history: History of GI bleeding, patient anticoagulated on warfarin. Family and social history: Noncontributory. Differential / pathologies of concern include GI Bleeding. Diagnostic studies of: -CBC, CMP, coagulation studies, magnesium. -CBC shows no anemia, normal platelet level -CMP shows no actionable abnormality, creatinine 1.5, bilirubin 1.7-both of these are historically elevated -Magnesium within normal limits -INR is slightly subtherapeutic at 1.7 Interventions of: -None. ED Course/Assessment/Plan: 83-year-old male with possible subacute upper GI bleeding with subjective report of melena with nothing in rectal vault on exam presents with concern for GI bleeding, he has no anemia, normal platelet level, I counseled him that he needs to follow-up with his primary care provider for possible referral to surgery for possible colonoscopy/endoscopy, strict return criteria for any symptomatic blood loss and GI bleeding, counseled the patient to follow-up with his primary care provider on his slightly subtherapeutic INR on Coumadin. Findings not consistent with active GI bleeding, anemia. Disposition of Black Tarry Stools. Patient verbalized understanding of the plan and return to ED criteria and engaged in shared decision making. Medical Records Medical records reviewed: Yes I reviewed the patient's medical records. Lab Data Lab results reviewed: Yes I reviewed the patient's lab results. Labs: Laboratory Tests Range/Units 08/25/24 16:20 WBC (4.4-10.8) 10^3/uL 9.07 RBC (4.36-5.78) 10^6/uL 4.30 L Hgb (13.5-17.5) g/dL 13.5 Hct (40.0-50.0) % 40.8 MCV (80-95) fL 95 MCH (27.0-33.0) pg 31.4 MCHC (32.0-36.0) % 33.1 RDW (11.8-14.1) % 14.4 H Plt Count (130-400) 10^3/uL 250 MPV (8.0-11.0) fL 10.9 Immature Gran % % 0.3 Neutrophils % % 70.3 Lymphocytes % % 19.5 Monocytes % % 8.6 Eosinophils % % 1.1 Basophils % % 0.2 Nucleated RBC % (0.0-0.3) % 0.0 Absolute Neutrophils (1.2-6.7) 10^3/uL 6.37 Absolute Lymphocytes (1.2-3.4) 10^3/uL 1.77 Absolute Monocytes (0.1-0.8) 10^3/uL 0.78 Absolute Eosinophils (0.0-0.7) 10^3/uL 0.10 Absolute Basophils (0.0-0.2) 10^3/uL 0.02 PT (9.1-11.1) sec 16.1 H INR (0.9-1.1) 1.7 H APTT (20.6-30.2) sec 28.4 Sodium (136-145) mmol/L 142 Potassium (3.5-5.1) mmol/L 4.3 Chloride (98-107) mmol/L 106 Carbon Dioxide (21.0-32.0) mmol/L 28.1 Anion Gap (3-11) mmol/L 7.9 BUN (7-18) mg/dL 15 Creatinine (0.70-1.30) mg/dL 1.5 H Est GFR (CKD-EPI 2020) (mL/min/1.73m2) 46.19 Glucose (74-106) mg/dL 92 Calcium (8.5-10.1) mg/dL 9.2 Magnesium mg/dL 2.0 Total Bilirubin (0.2-1.0) mg/dL 1.7 H AST (15-37) U/L 20 ALT (16-63) U/L 17 Alkaline Phosphatase (46-116) U/L 99 Total Protein (6.4-8.2) g/dL 7.6 Albumin (3.4-5.0) g/dL 3.8 Quality:SDOH Health Related Social Needs: No Data to Display Discharge Plan Disposition Patient Disposition: Home Condition: Stable Discharge Details Clinical Impression: Black tarry stools Primary Care Provider: Erica Mckenzie ED Provider: Felton Bal Home Meds and New Rx's Prescriptions: Continued vitamin B complex [B Complex-Vitamin B12] Tablet 1 tab PO DAILY aspirin [Adult Low Dose Aspirin] 81 mg tablet,delayed release (DR/EC) 81 mg PO DAILY Patient Comments: out of med right now ascorbate calcium (vitamin C) 500 mg tablet 1 g PO DAILY warfarin 1 mg tablet 1 mg PO DIRECTED Patient Comments: varies with blood count methylphenidate HCl 20 mg tablet 20 mg PO TID Patient Comments: ran out tadalafil 10 mg tablet 10 mg PO DAILY PRN Patient Comments: has not used Rx Instructions: administer approximately 30min before sexual activity; do not use more than 1 dose per 24hrs pantoprazole [Protonix] 40 mg tablet,delayed release (DR/EC) 40 mg PO DAILY metoprolol tartrate 25 mg tablet 12.5 mg PO BID atorvastatin 40 mg Tablet 40 mg PO HS warfarin [Coumadin] 2.5 mg Tablet 2.5 mg PO .6DAYS A WEEK Rx Instructions: 2.5 mg orally6 days a week, 5mg one day a week. acetaminophen 325 mg capsule 650 mg PO ONCE PRN (Reason: pain) Qty: 60 0RF Discharge Instructions Instructions: Bloody Stools, Adult ED Additional Instructions: You were seen in the emergency department for your report of black tarry stools, there was no blood or black stool on your rectal exam, your abdomen is nontender, and your blood count shows no hemoglobin and normal platelets indicating no significant blood loss. I do not think you are having any emergent GI bleeding at this time, you may have some scant upper GI bleeding, please talk to your primary care provider about getting a referral to general surgery for endoscopy/colonoscopy. Please return for any severe increase in abdominal pain, dizziness, other signs of blood loss. Your INR is slightly below target at 1.7, please follow-up with your primary care provider about adjustments to your Coumadin regimen. Referrals: [facility] [Provider Group] Erica Mckenzie [Primary Care Provider] -
== END 2024-08-25 17:27 | disposition home or self-care (01) ==
PROVIDERS: Physician Assistant; Emergency Provider Physician Assistant; PCP Nurse Practitioner Family
DX: K92.2 Gastrointestinal hemorrhage, unspecified (principal); I10 Essential (primary) hypertension; E78.5 Hyperlipidemia, unspecified; Z86.73 Personal history of transient ischemic attack (TIA), and cerebral infarction without residual deficits; Z79.82 Long term (current) use of aspirin; Z79.01 Long term (current) use of anticoagulants; Z95.2 Presence of prosthetic heart valve; Z87.891 Personal history of nicotine dependence
CPT/HCPCS: 00123; 36415; 80053; 99283; 83735; 85025; 85610; 85730

== ENCOUNTER 2024-12-09 21:00 | Outpatient (REF) | payer MEDICARE, SELFPAY ==
[2024-12-12 15:06] LABS: Fentanyl Scr w/Rfx Confirm Negative ng/mL (<1)
[2024-12-18 11:45] LABS: Cocaine Interpretation Positive.
== END 2024-12-09 21:01 | disposition home or self-care (01) ==
LOC: NCHCN 21:00
PROVIDERS: PCP Nurse Practitioner Family; Visit Provider Nurse Practitioner Family
DX: F90.9 Attention-deficit hyperactivity disorder, unspecified type (principal)
CPT/HCPCS: 80307; 80353; 82520